=== PATIENT | male | born 1950 ===

== ENCOUNTER 2025-04-18 08:58 | Outpatient (AMB) | payer MEDICARE, OTHER, SELFPAY ==
--- NOTE | 2025-04-18 09:14 | MHC.OFFVIS ---
Vital Signs 04/18/25 09:23 Height 5 ft 6 in Weight 161 lb BMI 26.0 BP 128/67 Blood Pressure Location Rt brachial Position Sitting Pulse 81 Intake Visit Reasons: inguinal hernia Intake Note: Patient referred by Luis Rivera DO for inguinal hernia. Present since November. Patient c/o: lower abdominal bulging. Operations Administrator Required: No Accompanied by: Self / Same As Patient Allergies No Known Allergies Allergy (Verified 04/18/25 09:19) Medication List - Last Reconciled 04/18/25 by Keith Ch MD No Known Home Meds HPI HPI inguinal hernia: Details: 75-year-old male referred for an inguinal hernia in the right side. The patient says that he has been noticing this mass on the right side with a past 5 months now. He states that this gets uncomfortable. There were times that this becomes bigger in size He denies any GI complaints. He says that he sees the [facility] but is in the process of switching primary care physicians. He says that he does not take any medications. He says he lives mostly in [place] and the [facility], but he is here with his brother on some months as well. He admits to drinking alcohol(beer) every day. [facility] Medical History (Updated 04/18/25 @ 09:41 by Keith Ch MD) Reducible right inguinal hernia Surgical History Hx of left inguinal hernia repair Social History Patient Tobacco Use Status: Former Tobacco user Review of Systems Const Denies chills and Denies fever(s) Card Denies chest pain, Denies dyspnea and Denies dyspnea on exertion Resp Denies cough, Denies dyspnea and Denies dyspnea on exertion GI Denies hematochezia and Denies change in bowel habits Denies hematuria and Denies difficulty urinating Musc Denies back pain and Denies limited range of motion Neuro Denies focal weakness and Denies convulsions Psych Denies depression and Denies mood swings Physical Exam Vital Signs: Last Vital Signs Pulse 81 04/18/25 09:23 BP 128/67 04/18/25 09:23 BMI result Body Mass Index 26.0 Const General: comfortable and no acute distress Orientation/consciousness: patient oriented x3 Neck Neck: Yes no lymphadenopathy Resp Auscultation: clear to auscultation bilaterally Cardio Rhythm: regular rhythm GI Other: Large right inguinal hernia reducible Palpation (GI): Soft to palpation, nontender and no guarding Neuro Other: Seems to have trouble with memory General: patient oriented x3 Assessment & Plan Assessment & Plan (1) Reducible right inguinal hernia: Code(s): K40.90 - Unilateral inguinal hernia, without obstruction or gangrene, not specified as recurrent Category: Medical Plan He has a large right reducible inguinal hernia. He wants this repaired. He admits to symptoms with the hernia. I explained to him the technique of repair of the inguinal hernia with mesh placement. I reviewed the risks including but not limited to bleeding, infections, injury to vas deferens, recurrence, postop pain, as well as the benefits and alternatives. I also described to him what to expect postoperatively. He is waiting to be seen by a primary care physician here in [facility]. Coding Level of Care Code New Pt Level 3 (25904) Diagnoses Reducible right inguinal hernia K40.90
[2025-04-18 09:23] VITALS: BP 128/67; PULSE 81; BMI 26.0
--- OUTSIDE RECORDS SUMMARY | 2025-04-18 09:35 | XMS_ITS | Data Portability ---
Author Organization [place] - [facility], , [facility] Address [address] [place] [address] Care Team Providers Care Document Preparer Microfilming Name Role Phone ADONAY CALDERON Primary Care Provider [phone] Assessment Encounter Date Assessment Date Assessment LastModified by Organization Details LastModified Time 07/11/2020 07/11/2020 Report of virtual visit by phone during the COVID19 pandemic. Patient was scheduled for a routine physical. 12 point review of systems is notable for: 1) adenomatous colon polyp-reviewed report from colonoscopy recently showing an adenomatous polyp. We discussed that in 2008 he also had an adenomatous polyp. Patient will call to see if there was an interim colonoscopy that not aware of. Advised appropriate follow-up in 5 years. 2) mixed hyperlipidemia-r eviewed lipid panel. Favorable ratio. No strong indication for statin therapy. Repeat yearly. 3) chronic constipation-pat elliott notes chronic problems with constipation. He had good results with MiraLAX but did not want to use it indefinitely. Assessment-chron ic constipation. Plan-patient advised that he should use MiraLAX as needed to make his bowel movements less traumatic and hard. Follow-up as needed. 4) health maintenance-revi ewed all quality measures. Patient is a low risk for falling and exercises regularly. We discussed needing immunizations for shingles and tetanus but he is going to postpone this until the pandemic has calmed down. Yearly physical encouraged. He is comfortable with this plan. 25 minutes spent in direct patient care. [email or web address] Not available 07/11/2020 14:50:11 07/20/2021 07/20/2021 Patient is here for a routine physical and ongoing review of systems. 12 point review of systems is notable for: 1) health maintenance-revi ewed all quality measures. Immunizations are up to date. Patient gets regular exercise. Lipid panel shows a favorable ratio. Normal glucose. Patient states colonoscopy is up to date. Yearly physical advised. Reviewed his normal PHQ 9. Reviewed his alcohol screening questionnaire. Patient denies any worry about his regular moderate use of alcohol. Tetanus shot updated. 2) hemorrhoids-he denies any significant bleeding. He is typically able to push the hemorrhoids back inside. He denies any significant complications. He declines referral to colorectal surgeon. Follow up with any worsening. 3) history of adenomatous polyps-we will make sure that we have records from his most recent colonoscopy of 06/30/20- bx showed polyp [email or web address] Not available 07/22/2021 05:36:57 08/02/2022 08/02/2022 Patient is here for his yearly physical. He lives majority of the year in the [facility]. He returns to visit family and friends once a year. 12 point review of systems is notable for: 1) mixed hyperlipidemia-w ith no smoking history and an excellent blood pressure. We have discussed the role of statins for primary prevention. He has been having more milkshakes, and his total cholesterol did increase this year. Assessment-mixed hyperlipidemia. He strongly prefers to avoid medication. He will lay off the milkshakes. Follow-up in one year. 2) history of adenomatous polyp and hemorrhoids. His colonoscopy is up to date from 2020. He has episodic bleeding, but denies any shortness of breath or lightheadedness. Assessment-histo ry of adenomatous polyp. Colonoscopy is up to date until 2024. 3) BPH-mild BPH symptoms with nocturia 2 or 3 and mild urgency during the day. He prefers to avoid medication. Okay to follow-up with worsening symptoms. 4) advance care planning-see template above. Reviewed the MOLST form in detail. Encouraged him to review this with his healthcare proxy. Patient is clear that he does not want to be a burden to his family. He would agree to heroic measures temporarily, but then would want to be allowed to . He will discuss this with his healthcare proxy and consider completing the form. 5) health maintenance I reviewed all quality measures. Yearly physical advised. Discussed the importance of regular exercise. Reviewed his normal PHQ9. 6) onychomycosis-he is controlling some mild great toenail fungal involvement with dals-aef-hrwqysp solutions. He denies any pain. Okay to follow-up yearly. He is comfortable with these plans. We agreed that he would switch PCPs next year. [email or web address] Not available 08/02/2022 08:39:47 03/10/2024 03/10/2024 We completed your Medicare Wellness exam today. This was an opportunity to assess your overall well being including your ability to care for yourself, your mobility, memory, mental health, as well as your safety. With advancing age, it is important to assign someone in your life as your Health Care Proxy (HCP). This person should know what is important to you and what your wishes are for medical procedures if you cannot communicate your wishes yourself (severe illness, unconsciousness) . We discussed having a completed Health Care Proxy form today. In addition, today we started a conversation about your End of Life wishes. These conversations will continue over the years. Please consider reading the book, Being Mortal by Gagandeep Hauser to help frame future conversations. We discussed the purpose of a MOLST form (Medical Orders for Life Sustaining Treatment) and completed this form if appropriate per your wishes. Vision and Hearing are senses that are critically important as we age. When impaired, they can contribute to memory loss, falls, and make it harder to drive, talk to family and friends, and engage in the world. Please get your vision checked yearly and your hearing checked when you start to notice hearing loss. We discussed approaches to lowering your risk of heart disease and stroke . Your blood pressure is at goal. Your cholesterol is at goal. We discussed cancer screening you may need as well as vaccines to prevent infections. Colon Cancer : Your risk of colon cancer is average. Due for colorectal screenin. If you are not planning to have a colonoscopy please screen with stool cards yearly. Prostate Cancer : PSA testing for ages 55-69 risks and benefits discussed patient declines testing. Influenza Vaccine : Flu shot yearly. Tetanus Vaccine : Every 10 years. Due: 2030. The following vaccines are available from your pharmacy: Pneumonia Vaccine : PCV20: once after age 65. Shingles Vaccine : 2 shots after age 50. Covid Vaccine : Make sure you have received the most up to date covid vaccine. Your personal health goal for the year is: Not available 03/10/2024 09:57:38 03/14/2025 03/14/2025 We completed your Medicare Wellness exam today. This was an opportunity to assess your overall well being including your ability to care for yourself, your mobility, memory, mental health, as well as your safety. With advancing age, it is important to assign someone in your life as your Health Care Proxy (HCP). This person should know what is important to you and what your wishes are for medical procedures if you cannot communicate your wishes yourself (severe illness, unconsciousness) . We discussed having a completed Health Care Proxy form today. If appropriate, today we started a conversation about your End of Life wishes. These conversations will continue over the years. We discussed the purpose of a MOLST form (Medical Orders for Life Sustaining Treatment) and completed this form if appropriate per your wishes. Vision and Hearing are senses that are critically important as we age. When impaired, they can contribute to memory loss, falls, and make it harder to drive, talk to family and friends, and engage in the world. Please get your vision checked yearly and your hearing checked when you start to notice hearing loss. We discussed approaches to lowering your risk of heart disease and stroke . Your blood pressure is at goal. Your cholesterol is at goal. We discussed cancer screening you may need as well as vaccines to prevent infections. Colon Cancer : Your risk of colon cancer is average. Due for colorectal screenin. If you are not planning to have a colonoscopy please screen with stool cards yearly. june Prostate Cancer : PSA testing for ages 55-69 risks and benefits discussed test ordered. Influenza Vaccine : Flu shot yearly. Tetanus Vaccine : Every 10 years. Due: 2030. The following vaccines are available from your pharmacy: Pneumonia Vaccine : PCV20: once after age 65. Shingles Vaccine : 2 shots after age 50. Covid Vaccine : Make sure you have received the most up to date covid vaccine. Your personal health goal for the year is: We reviewed your chronic medical conditions and updated your plan for management. Please review instructions below. We have discussed your personal goals and discussed how to reach your goals. Please reach out to us via the Portal or phone if you have questions about your chronic conditions or if you or your caregivers require assistance in meeting your goals. Please visit our website [email or web address] for more patient resources. As part of your care plan, we will help coordinate your ongoing medical needs, arrange for durable medical equipment, renew prescriptions and necessary prior authorizations, facilitate getting referrals and collaborating with specialist, referrals for VNA services. Not available 03/14/2025 10:12:32 Plan of Treatment Reminders Order Date Submit Date Provider Last Modified By Organization Details Last Modified Time Details Appointments None recorded. Lab PSA, serum or plasma 2024 025 [facility], [address] [place] [address], [id number], 12:20:17 CBC 2024 025 [facility], [address] [place] [address], [id number], 10:58:30 Referral None recorded. Procedures None recorded. Surgeries None recorded. Imaging US, lower extremity, nonvascular - right inguinal pain, r/o hernia 2024 025 [facility] (Im[facility]), [address], [place], [address], 09:18:46 Medication Orders None recorded. Patient TargetsNo targets recorded. Patient Instructions Encounter Date Encounter Id Patient Instructions Last Modified By Organization Details Last Modified Time 07/11/2020 [id number] preventing falls : care instructions [email or web address] Not available 07/11/2020 14:51:07 hearing loss information [email or web address] Not available 07/11/2020 14:51:06 advance directives: care instructions hsimkin Not available 07/11/2020 14:51:07 well visit, over 65: care instructions [email or web address] Not available 07/11/2020 14:51:06 Prostate Cancer Screening using PSA was discussed. The U.S. Preventive Services Task Force advises not to make a PSA test a part of the standard exam for men ages 55-69. Instead they recommend the uncertainties about the test be discussed and ordered only if a patient still wants it. Over their lifetimes as many as 50% or more of men will develop prostate cancer but only 2% of men will of prostate cancer. For men who chose to be screened for prostate cancer if 1000 men are screened with a psa test over a 15 year period there might be 1-2 deaths prevented however 235 men will have a biopsy with risk of infection, bleeding and Pain, 100 men will have their prostate removed by surgery or radiation treatments and 60-70 of those will suffer incontinence or impotence. There is also the risk of anesthesia or radiation complications. For men over 70 prostate cancer screening offered no benefit and risked pain, worry, expense and possibly shorter life expectancy. [email or web address] Not available 07/11/2020 14:03:11 07/20/2021 [id number] preventing falls : care instructions hsimkin Not available 07/22/2021 05:31:10 hearing loss information hsimkin Not available 07/22/2021 05:31:10 advance directives: care instructions hsimkin Not available 07/22/2021 05:31:10 well visit, over 65: care instructions hsimkin Not available 07/22/2021 05:31:10 Prostate Cancer Screening using PSA was discussed. The U.S. Preventive Services Task Force advises not to make a PSA test a part of the standard exam for men ages 55-69. Instead they recommend the uncertainties about the test be discussed and ordered only if a patient still wants it. Over their lifetimes as many as 50% or more of men will develop prostate cancer but only 2% of men will of prostate cancer. For men who chose to be screened for prostate cancer if 1000 men are screened with a psa test over a 15 year period there might be 1-2 deaths prevented however 235 men will have a biopsy with risk of infection, bleeding and Pain, 100 men will have their prostate removed by surgery or radiation treatments and 60-70 of those will suffer incontinence or impotence. There is also the risk of anesthesia or radiation complications. For men over 70 prostate cancer screening offered no benefit and risked pain, worry, expense and possibly shorter life expectancy. CCM: The provider and patient discussed the Chronic Care Management program, including the services provided, and any fees associated with them. [email or web address] Not available 07/20/2021 14:10:59 08/02/2022 [id number] high cholesterol lifestyle changes hsimkin Not available 08/02/2022 08:33:43 preventing falls : care instructions hsimkin Not available 08/02/2022 08:33:44 hearing loss information hsimkin Not available 08/02/2022 08:33:43 advance directives: care instructions hsimkin Not available 08/02/2022 08:33:43 well visit, over 65: care instructions hsimkin Not available 08/02/2022 08:33:44 Prostate Cancer Screening using PSA was discussed. The U.S. Preventive Services Task Force advises not to make a PSA test a part of the standard exam for men ages 55-69. Instead they recommend the uncertainties about the test be discussed and ordered only if a patient still wants it. Over their lifetimes as many as 50% or more of men will develop prostate cancer but only 2% of men will of prostate cancer. For men who chose to be screened for prostate cancer if 1000 men are screened with a psa test over a 15 year period there might be 1-2 deaths prevented however 235 men will have a biopsy with risk of infection, bleeding and Pain, 100 men will have their prostate removed by surgery or radiation treatments and 60-70 of those will suffer incontinence or impotence. There is also the risk of anesthesia or radiation complications. For men over 70 prostate cancer screening offered no benefit and risked pain, worry, expense and possibly shorter life expectancy. tania Not available 08/02/2022 07:46:35 Reason for Referral None Reported. Results Created Date Observation Date Name Description Value Unit Range Abnormal Flag Note LastModifiedBy Organization Detail LastModifiedTime 06/27/2006/27/2020 SARS CoV 2 RNA (COVI D-19) , QL, ore tester-P CR, respi rator y speci men covid-19 source MARTIN GUZMAN SWAB (COTTRELL BLOWER) Not Available [facility] [address] [place], [address], 06/27/2020 10:40:02 06/27/20 20 06/27/2020 SARS CoV 2 RNA (COVI D-19) , QL, ore tester-P CR, respi rator y speci men covid-19 comment Not Available [facility] [address] [place], [address], 06/27/2020 10:40:02 06/27/20 20 06/27/2020 SARS CoV 2 RNA (COVI D-19) , QL, ore tester-P CR, respi rator y speci men covid testing status Sent to [facility] Not Available [facility] [address] [place], [address], 06/27/2020 10:40:02 06/27/20 20 06/28/2020 SARS CoV 2 RNA (COVI D-19) , QL, ore tester-P CR, respi rator y speci men specimen source/descr iption MARTIN DAUGHERTY AL SWAB Not Available [facility] [address] [place], [address], 06/28/2020 07:18:39 06/27/20 20 06/28/2020 SARS CoV 2 RNA (COVI D-19) , QL, ore tester-P CR, respi rator y speci men sars-cov 2 (covid-19) PCR Not Detect ed not detect ed Negat alba resul ts do not precl ude SARS- CoV-2 infec tion and shoul d not be used as the sole basis for patie nt manag ement decis ions. Negat alba resul ts must be combi kristen with clini carol obser vatio ns, patie nt histo ry, and epide miolo gical infor matio n. Optim um speci men types and timin g for peak viral level s durin g infec tion by SARS- CoV-2 have not been deter mined . Colle ction of multi ple speci mens from the same patie nt may be neces shabana to detec t the virus . This test has been autho rized by the FDA under an Emerg ency Use Autho rizat ion (EUA) for use by 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 Not Available [facility] [address] [place], [address], 06/28/2020 07:18:39 06/30/20 20 07/04/2020 patho logy study path report [facility] [address] [place] [address] Lab Direc tor: Karie hicks MD Surgi carol Patho logy Repor t Acces ever #: [id number] FINAL PATHO LOGIC DIAGN OSIS: DESCE NDING COLON , BIOPS Y: Adeno matou s polyp . B. RECTU M, BIOPS Y: Infla med hyper plast ic polyp Shira ctron icall y Hermelinda d Out By Lumin stefanie lange MD By his/h er signcyndi poole above , the patho logis t liste d as chad kennedy the Final Diagn osis certi fies that he/sh e has perso gian revie wed this case and confi rmed or corre cted the diagn osis. CL[facility] HISTO RY High risk colon cance r surve illan ce: Perso nal histo ry of colon ic polyp s. SPECI MENS SUBMI TTED: A: DESCE NDING COLON BIOPS Y B: RECTU M, BIOPS Y GROSS DESCR IPTIO N A. DESCE NDING COLON BIOPS Y: Forma torrie, 1 fragm ent 0.4 cm. Entir farrah casse tte A1. B. RECTU M, BIOPS Y: Forma torrie, 2 fragm ents each measu ring 0.1 cm. Entir farrah casse tte B1. AN 020 Gross ing Staff : SANDOVAL valero Name: GEMINI SETH : 950 (Age: 70) Sex: M 3 Insti tutio n: [facility] Locat ion: [facility] Date of Opera tion: Date of Acces ever: 020 Repor cathy: 020 14:55 Resul ts To: Phil hernández MD, BS Tacho almanza MD, BA Not Available [facility] [address] [place], [address], 07/04/2020 16:16:16 07/06/20 20 07/06/2020 lipid panel , serum cholesterol 205 mg/dL <200 mg/dl Deepti able 200-2 39 mg/dl Borde rline High >240 mg/dl High Not Available [address], [address], 07/06/2020 15:57:32 07/06/2007/06/2020 lipid panel , serum triglyceride s 72 mg/dL <150 mg/dL Winter l 150-1 99 mg/dL Borde rline High 200-4 99 mg/dL High >500 mg/dL Very High Not Available [address], [address], 07/06/2020 15:57:32 07/06/2007/06/2020 lipid panel , serum direct HDL 61 mg/dL <40 mg/dl - Major Risk for CHD >60 mg/dl - Negat alba Risk for CHD Not Available [address], [address], 07/06/2020 15:57:32 07/06/2007/06/2020 gluco se, QN [mass /volu me], serum or plasm a glucose 92 mg/dL 70-100 Not Available [address], [address], 07/06/2020 15:57:33 07/06/2007/06/2020 LDL, calcu lated , serum (OBS) LDL - calculated 129.6 RISK CATEG ORY LDL GOAL _ CHD or CHD Risk Equiv alent s <100 mg/dl (10-y ear risk >20%) 2+ Risk Facto rs <130 mg/dl (10-y ear risk <= 20%) 0-1 Risk Facto r <160 mg/[facility] e with 0-1 risk facto r have a 10 year risk <10%, thus 10 year risk asses ment in peopl e with 0-1 risk facto r is not preston shabana. Not Available [address], [address], 07/06/2020 15:57:33 07/16/20 21 07/16/2021 LIPID PANEL cholesterol 206 mg/dL <200 mg/dl Deepti able 200-2 39 mg/dl Borde rline High >240 mg/dl High Not Available [address], [address], 07/16/2021 15:01:56 07/16/20 21 07/16/2021 LIPID PANEL triglyceride s 74 mg/dL <150 mg/dL Winter l 150-1 99 mg/dL Borde rline High 200-4 99 mg/dL High >500 mg/dL Very High Not Available [address], [address], 07/16/2021 15:01:56 07/16/20 21 07/16/2021 LIPID PANEL direct HDL 63 mg/dL <40 mg/dl - Major Risk for CHD >60 mg/dl - Negat alba Risk for CHD Not Available [address], [address], 07/16/2021 15:01:56 07/16/20 21 07/16/2021 GLUCO SE glucose 98 mg/dL 70-100 Not Available [address], [address], 07/16/2021 15:01:56 07/16/20 21 07/16/2021 LDL - CALCU LATED LDL - calculated 128.2 RISK CATEG ORY LDL GOAL _ CHD or CHD Risk Equiv alent s <100 mg/dl (10-y ear risk >20%) 2+ Risk Facto rs <130 mg/dl (10-y ear risk <= 20%) 0-1 Risk Facto r <160 mg/dl [facility] all peopl e with 0-1 risk facto r have a 10 year risk <10%, thus 10 year risk asses ment in peopl e with 0-1 risk facto r is not preston waltony. Not Available [address], [address], 07/16/2021 15:01:57 07/25/20 22 07/25/2022 LIPID PANEL cholesterol 248 mg/dL <200 mg/dl Deepti able 200-2 39 mg/dl Borde rline High >240 mg/dl High Not Available [address], [address], 07/25/2022 12:10:30 07/25/20 22 07/25/2022 LIPID PANEL triglyceride s 126 mg/dL <150 mg/dL Winter l 150-1 99 mg/dL Borde rline High 200-4 99 mg/dL High >500 mg/dL Very High Not Available [address], [address], 07/25/2022 12:10:30 07/25/20 22 07/25/2022 LIPID PANEL direct HDL 66 mg/dL <40 mg/dl - Major Risk for CHD >60 mg/dl - Negat alba Risk for CHD Not Available [address], [address], 07/25/2022 12:10:30 07/25/20 22 07/25/2022 GLUCO SE glucose 94 mg/dL 70-100 Not Available [address], [address], 07/25/2022 12:10:31 07/25/20 22 07/25/2022 LDL - CALCU LATED LDL - calculated 156.8 RISK CATEG ORY LDL GOAL _ CHD or CHD Risk Equiv alent s <100 mg/dl (10-y ear risk >20%) 2+ Risk Facto rs <130 mg/dl (10-y ear risk <= 20%) 0-1 Risk Facto r <160 mg/dl [facility] all peopl e with 0-1 risk facto r have a 10 year risk <10%, thus 10 year risk asses ment in peopl e with 0-1 risk facto r is not preston shabana. Not Available [address], [address], 07/25/2022 12:10:33 03/02/20 24 03/02/2024 LIPID PANEL cholesterol 208 mg/dL <200 mg/dl Deepti able 200-2 39 mg/dl Borde rline High >240 mg/dl High Not Available [address], [address], 03/02/2024 12:32:31 03/02/20 24 03/02/2024 LIPID PANEL triglyceride s 89 mg/dL <150 mg/dL Winter l 150-1 99 mg/dL Borde rline High 200-4 99 mg/dL High >500 mg/dL Very High Not Available [address], [address], 03/02/2024 12:32:31 03/02/20 24 03/02/2024 LIPID PANEL direct HDL 65 mg/dL <40 mg/dl - Major Risk for CHD >60 mg/dl - Negat alba Risk for CHD Not Available [address], [address], 03/02/2024 12:32:31 03/02/20 24 03/02/2024 GLUCO SE glucose 91 mg/dL 70-100 Not Available [address], [address], 03/02/2024 12:32:32 03/02/20 24 03/02/2024 LDL - CALCU LATED LDL - calculated 125.2 RISK CATEG ORY LDL GOAL _ CHD or CHD Risk Equiv alent s <100 mg/dl (10-y ear risk >20%) 2+ Risk Facto rs <130 mg/dl (10-y ear risk <= 20%) 0-1 Risk Facto r <160 mg/[facility] with 0-1 risk facto r have a 10 year risk <10%, thus 10 year risk asses ment in peopl e with 0-1 risk facto r is not preston donald. Not Available [address], [address], 03/02/2024 12:32:33 03/07/20 25 03/08/2025 LIPID PANEL cholesterol 191 mg/dL <200 mg/dl Deepti able 200-2 39 mg/dl Borde rline High >240 mg/dl High Not Available [address], [address], 03/08/2025 16:26:13 03/07/20 25 03/08/2025 LIPID PANEL triglyceride s 57 mg/dL <150 mg/dL Winter l 150-1 99 mg/dL Borde rline High 200-4 99 mg/dL High >500 mg/dL Very High Not Available [address], [address], 03/08/2025 16:26:13 03/07/20 25 03/08/2025 LIPID PANEL direct HDL 65 mg/dL <40 mg/dl - Major Risk for CHD >60 mg/dl - Negat alba Risk for CHD Not Available [address], [address], 03/08/2025 16:26:13 03/07/20 25 03/08/2025 GLUCO SE glucose 103 mg/dL 70-100 high Not Available [address], [address], 03/08/2025 16:26:14 03/07/20 25 03/08/2025 LDL - CALCU LATED LDL - calculated 115 RISK CATEG ORY LDL GOAL _ CHD or CHD Risk Equiv alent s <100 mg/dl (10-y ear risk >20%) 2+ Risk Facto rs <130 mg/dl (10-y ear risk <= 20%) 0-1 Risk Facto r <160 mg/dl [facility] all peopl e with 0-1 risk facto r have a 10 year risk <10%, thus 10 year risk asses ment in peopl e with 0-1 risk facto r is not preston donald. Not Available [address], [address], 03/08/2025 16:26:15 03/15/20 25 03/15/2025 CBC WBC 11.33 K/ L 4.23-9 .07 high Not Available [address], [address], 03/15/2025 10:58:30 03/15/20 25 03/15/2025 CBC RBC 5.23 M/ L 4.63-6 .08 Not Available [address], [address], 03/15/2025 10:58:30 03/15/20 25 03/15/2025 CBC HGB 15.9 g/dL 13.7-1 7.5 Not Available [address], [address], 03/15/2025 10:58:30 03/15/20 25 03/15/2025 CBC HCT 47.5 % 40.1-5 1.0 Not Available [address] [address], [address], 03/15/2025 10:58:30 03/15/20 25 03/15/2025 CBC MCV 90.8 fL 79.0-9 2.2 Not Available [address], [address], 03/15/2025 10:58:30 03/15/20 25 03/15/2025 CBC MCH 30.4 pg 25.7-3 2.2 Not Available [address], [address], 03/15/2025 10:58:30 03/15/20 25 03/15/2025 CBC MCHC 33.5 g/dL 32.3-3 6.5 Not Available [address], [address], 03/15/2025 10:58:30 03/15/20 25 03/15/2025 CBC plt 231 K/ L 163-33 7 Not Available [address], [address], 03/15/2025 10:58:30 03/15/20 25 03/15/2025 CBC MPV 10.4 fL 9.4-12 .4 Not Available [address], [address], 03/15/2025 10:58:30 03/15/20 25 03/15/2025 CBC neut% 38.2 % 34.0-6 7.9 Not Available [address], [address], 03/15/2025 10:58:30 03/15/20 25 03/15/2025 CBC neut# 4.33 1.78-5 .38 Not Available [address], [address], 03/15/2025 10:58:30 03/15/20 25 03/15/2025 CBC lymph % 53.0 % 21.8-5 3.1 Not Available [address], [address], 03/15/2025 10:58:30 03/15/20 25 03/15/2025 CBC lymph # 6.01 K/ L 1.32-3 .57 high SREV= [facility]. Not Available [address], [address], 03/15/2025 10:58:30 03/15/20 25 03/15/2025 CBC mono% 6.4 % 5.3-12 .2 Not Available [address], [address], 03/15/2025 10:58:30 03/15/20 25 03/15/2025 CBC mono# 0.72 0.30-0 .82 Not Available [address], [address], 03/15/2025 10:58:30 03/15/20 25 03/15/2025 CBC eo% 1.3 % 0.8-7. 0 Not Available [address], [address], 03/15/2025 10:58:30 03/15/20 25 03/15/2025 CBC eo# 0.15 0.04-0 .54 Not Available [address], [address], 03/15/2025 10:58:30 03/15/20 25 03/15/2025 CBC baso% 0.8 % 0.2-1. 2 Not Available [address], [address], 03/15/2025 10:58:30 03/15/20 25 03/15/2025 CBC baso# 0.09 0.00-0 .08 high Not Available [address], [address], 03/15/2025 10:58:30 03/15/20 25 03/15/2025 CBC RDW-CV 12.3 % 11.6-1 4.4 Not Available [address], [address], 03/15/2025 10:58:30 03/15/20 25 03/15/2025 CBC Ig% 0.300 % 0.000- 1.500 Ig % >0.5 Indic ates possi ble Left Shift Not Available [address], [address], 03/15/2025 10:58:30 03/15/20 25 03/15/2025 CBC Ig# 0.030 0.000- 0.093 Not Available [address], [address], 03/15/2025 10:58:30 03/15/20 25 03/15/2025 CBC NRBC% 0.0 % 0.0-0. 2 Not Available [address], [address], 03/15/2025 10:58:30 03/15/20 25 03/15/2025 CBC NRBC# 0.000 0.000- 0.012 Not Available [address], [address], 03/15/2025 10:58:30 03/15/20 25 03/15/2025 PSA PSA 0.87 NG/mL 0.00-4 .00 Not Available [address], [address], 03/15/2025 12:20:17 03/16/20 25 03/15/2025 US, lower extre mity, nonva scula r CLINIC AL HISTOR Y: Right inguin al bulge and pain. Possib le hernia . TECHNI QUE: 2D sonogr aphy of the area of the patien t's lump perfor med. COMPAR FERNANDO: None. FINDIN GS: At the site of the palpab le abnorm ality, there is a defect in the abdomi nal wall with Valsal va maneuv er measur ing 5 mm. With Valsal va there is a hernia contai oj viscer al fat. IMPRES EVER: Fat-co ntaini ng right inguin al hernia with a neck measur ing 5 mm. Readeusebio kennedy Physic monie: Marcell Soto [facility] (Imaging) [address], [place], [address], 03/16/2025 14:22:01 Result Notes None recorded. Problems Name Problem SNOMED Code Status Onset Date Resolution Date Notes Provider Name and Address Organization Details Recorded Time Active 2019 son 2018 from overdose Tacho Knox MD [address] [place] [address], [phone] , [facility] 0 14:51:01 Adenomat ous polyp of colon 164393992 Active 2021 Tacho Knox MD [address] [place] [address], [phone] , [facility] 2 08:38:16 Onychomy cosis of toenails 615824832 Active 2021 Tacho Knox MD [address] [place] [address], [phone] , [facility] 2 08:38:19 Advance care planning Active 2021 see note today Tacho Knox MD [address] [place] [address], [address] , [facility] 2 08:42:22 Mixed hyperlip idemia 153956073 Active 2004 Not Available [facility] 0 02:38:22 Internal hemorrho ids 33325721 Completed 200409/15/2013 Not Available [facility] 3 02:03:13 Dyspnea 134758582 Completed 200709/15/2013 Not Available [facility] 3 02:02:46 Finding by method 207734908 Completed 200409/15/2013 Not Available [facility] 3 02:01:56 Breathin g painful 98096575 Completed 200409/15/2013 Not Available [facility] 3 02:02:56 Neoplasm of uncertai n behavior of skin 21212820 Completed 200409/15/2013 Not Available [facility] 3 02:01:52 Hemorrha ge of rectum and anus 373686018 Completed 200309/15/2013 Not Available [facility] 3 02:03:17 Hemangio ma of skin and subcutan eous tissue 283614595 Completed 10/11/2013 Tacho Knox MD [address] [place] [address], [phone] , [facility] 3 11:53:35 Hyperlip idemia 56258300 Completed 200710/11/2013 aTcho Knox MD [address] [place] [address], [address] , [facility] 3 11:53:35 Nonvenom ous insect bite of multiple sites with infectio n 096272766 Completed 200309/15/2013 Not Available [facility] 3 02:04:12 Pure hypercho lesterol emia 183128961 Completed 200610/11/2013 Tacho Knox MD [address] [place] [address], [address] , [facility] 3 11:53:35 Problem Notes None recorded. Procedures Surgical History Date Name Laterality Status Provider Name and Address Organization Details Recorded Time 03/14/20 25 Medicare Wellness Visit completed Augeda King MA [facility] [place] 03/11/2025 14:44:56 03/10/20 24 Medicare Wellness Visit completed Lalita Moore MA [facility] [place] 03/10/2024 09:10:51 08/02/20 22 Medicare Wellness Visit completed Jennifer Lorenz MA [facility] [place] 08/02/2022 07:46:35 08/02/20 22 Alcohol use screening completed Jennifer Lorenz MA [facility] [place] 08/02/2022 07:46:35 08/02/20 22 Cardiovascular disease risk reduction counseling completed Jennifer Lorenz MA [facility] [place] 08/02/2022 07:46:35 08/02/20 22 Advanced Care Planning completed Tacho Knox MD [address] [place] [address], [phone], [facility] 08/02/2022 08:40:37 07/20/20 21 Medicare Wellness Visit completed Geovanna Alexander MA [facility] [place] 07/20/2021 13:34:32 07/20/20 21 Alcohol use screening completed Geovanna Alexander MA [facility] [place] 07/20/2021 13:34:32 07/11/20 20 Medicare Wellness Visit completed Geovanna Alexander MA [facility] [place] 07/11/2020 14:03:12 07/11/20 20 prevention-cardiov ascular risk reduction counseling completed Geovanna Alexander MA [facility] [place] 07/11/2020 14:03:12 07/11/20 20 prevention-annual alcohol misuse screening completed Geovanna Alexander MA [facility] [place] 07/11/2020 14:03:12 03/11/20 19 Medicare Wellness Visit completed Geovanna Alexander MA [facility] [place] 03/11/2019 07:47:21 08/14/20 17 Medicare Wellness Visit completed Geovanna Alexander MA [facility] [place] 08/14/2017 13:55:03 08/05/20 16 Medicare Wellness Visit completed Elle Garcia LPN [facility] [place] 08/05/2016 09:29:12 05/05/20 15 Medicare Wellness Visit completed Geovanna Alexander MA [facility] [place] 05/05/2015 09:14:58 08/03/20 10 Excision completed Tacho Knox MD [address] [place] [address], [phone] 08/03/2010 14:52:04 Imaging Results None recorded. Procedure Notes None recorded. Medical Equipment None Reported. Allergies No known drug allergies Medications Name Sig Start Date Stop Date Status Note LastModified by Organization Details LastModified Time amoxicillin 875 mg tablet TAKE 1 TABLET BY MOUTH TWICE DAILY UNTIL ALL TAKEN 03/11 completed Not Available Not Available Not Available cephalexin 500 mg capsule active Not Available Not Available Not Available Bisa-Lax (bisacodyl) 5 mg tablet,carmelo yed release TK 4 TS PO ONCE A DAY 07/11 completed Not Available Not Available Not Available Zostavax (PF) 19,400 unit/0.65 mL subcutaneou s suspension ADM 0.65ML SC UTD 08/02 completed Not Available Not Available Not Available GaviLyte-G 236 gram-22.74 gram-6.74 gram-5.86 gram oral solution MIX AND DRINK UTD 07/11 completed Not Available Not Available Not Available BinaxNOW COVID-19 Ag Self Test kit TEST DIRECTED TODAY 08/02 completed Not Available Not Available Not Available Vitals Date Recorded Body weight Body mass index (BMI) Body height Heart rate Respiratory rate Oxygen saturation Oxygen saturation in Arterial blood by Pulse oximetry Systolic blood pressure Diastolic blood pressure Provider Name and Address Organization Details Last Updated DateTime 4 14572.5 3 g 25.5 kg/m2 168.91 cm 52 /min 12 /min 99 % 99 % 110 mm[Hg] 70 mm[Hg] Lalita Moore [facility] 4 09:17:27 Date Recorded Oxygen saturation Oxygen saturation in Arterial blood by Pulse oximetry Heart rate Body weight Body mass index (BMI) Body height Systolic blood pressure Diastolic blood pressure Provider Name and Address Organization Details Last Updated DateTime 5 98 % 98 % 54 /min 49519.7 g 25 kg/m2 168.91 cm 116 mm[Hg] 60 mm[Hg] Agueda King [facility] 5 09:52:40 Date Recorded Body weight Provider Name an d Address Organization Details Last Updated DateTime 07/11/2020 93926.63 g Geovanna fuentes [facility] 07/11/2020 14:03:50 Date Recorded Body height Body mass index (BMI) Body weight Systolic blood pressure Diastolic blood pressure Provider Name and Address Organization Details Last Updated DateTime 07/20/2021 168.91 cm 2.5 kg/m2 7076.04 g 110 mm[Hg] 64 mm[Hg] Geovanna Alexander [facility] 1 13:48:53 Date Recorded Body height Body mass index (BMI) Body weight Heart rate Systolic blood pressure Diastolic blood pressure Provider Name and Address Organization Details Last Updated DateTime 2 168.91 cm 25.8 kg/m2 10860.9 6 g 60 /min 118 mm[Hg] 68 mm[Hg] Jennifer Lorenz [facility] 2 07:52:26 Social History Question Answer Notes LastModified by Organizat ion Details LastModified Time Tobacco Smoking Status Former Smoker quit 1972 JUAN CARLOS Sanchez, [facility] [place] 07/16/2011 09:22:23 Do You Wear A Helmet When Biking? Yes Rarely Bikes Information not available 05/05/2015 What Is Your Level Of Caffeine Consumption? Moderate 2 Cups Per Day [email or web address] Information not available 08/05/2016 How Much Tobacco Do You Chew? None Information not available 10/09/2012 What Type Of Diet Are You Following? REGULAR Information not available 05/05/2015 Which Illicit Or Recreational Drugs Have You Used? No Information not available 05/05/2015 Education 2 Year College Information not available 05/05/2015 What Is The Highest Grade Or Level Of School You Have Completed Or The Highest Degree You Have Received? [id number] Information not available 07/20/2021 How Many Days Of Moderate To Strenuous Exercise, Like A Brisk Walk, Did You Do In The Last 7 Days? 7 Information not available 07/20/2021 Have There Been Any Changes To Your Family Or Social Situation? Yes In The Last 3 Years Father & Sister & Son Commited Suicide Information not available 07/20/2021 When Did You Quit Smoking? 16+yearssinc elastcigaret te Smoked 8 Years - 1ppd Information not available 03/11/2019 How Many Days In The Past Year Have You Had A Heavy Drinking Consumption (4+ Female, 5+ Male)? 0 Information not available 08/14/2017 Are There Any Guns Present In Your Home? No Information not available 09/12/2011 Do You Use Insect Repellent Routinely? No Information not available 07/20/2021 Live Alone Or With Others? With Others Information not available 08/14/2017 Patient Has Health Care Proxy Signed And In Chart Yes [email or web address] Information not available 03/11/2019 CCM Consent Discussion 07/20/2021 [email or web address] Information not available 07/23/2021 Marital Status Information not available 09/12/2011 Mosquito Repellent Used Routinely No Information not available 03/11/2019 What Was The Date Of Your Most Recent Tobacco Screening? 03/10/2024 [email or web address] Information not available 03/10/2024 How Many Children Do You Have? 1 Son Committed Suicide -Has Grown Daughter Information not available 07/16/2011 Are There Any Occupational Health Risks Where You Work? None [email or web address] Information not available 08/05/2016 What Is Your Current Pack Years? 10packyears [email or web address] Information not available 03/10/2024 What Is Your Relationship Status? Domestic Partner Information not available 07/20/2021 Do You Use Your Seat Belt Or Car Seat Routinely? Yes Information not available 07/20/2021 Seat Belts Used Routinely Yes [email or web address] Information not available 09/12/2011 Smoke Alarm In Home Yes [email or web address] Information not available 09/12/2011 Do You Have Smoke And Carbon Monoxide Detectors In Your Home? Yes Information not available 07/20/2021 At What Age Did You Start Smoking Tobacco? 16 Information not available 07/20/2021 Are You Passively Exposed To Smoke? No Information not available 07/20/2021 How Much Tobacco Do You Smoke? No [email or web address] Information not available 03/10/2024 What Types Of Sporting Activities Do You Participate In? No Information not available 05/05/2015 General Stress Level Low Information not available 05/05/2015 Do You Use Sunscreen Routinely? No Stays In [employer] [place] [employer] Information not available 08/14/2017 How Many Years Have You Smoked Tobacco? 7 Information not available 07/20/2021 How Many Days In The Past Year Have You Consumed 5 Or More Drinks? 3 Information not available 07/20/2021 Sex: Male Functional Status Question Answer Note LastModified by Organizat ion Details LastModified Time Do you use any illicit or recreational drugs? No Information not available 07/20/2021 Do you or have you ever used any other forms of tobacco or nicotine? No Information not available 07/20/2021 What is your level of alcohol consumption? Moderate 3 beers/day Information not available 08/02/2022 Do you or have you ever used smokeless tobacco? Never used smokeless tobacco Information not available 07/11/2020 Are you currently employed? No Information not available 07/20/2021 What is your occupation? Other [employer] Information not available 04/09/2025 Do you or have you ever used e-cigarettes or vape? Never used electronic cigarettes Information not available 07/11/2020 What is your exercise level? Moderate Daily Information not available 08/02/2022 Mental Status None recorded. Family History Nothing Reported Notes:melanoma Medical History No medical history recorded. Immunizations Vaccine Type Date Status Note Provider Nam e and Address Organization Details Recorded Time Tdap 0 completed Not Available [facility] 11/13/2019 02:34:55 Pneumococcal conjugate PCV 13 6 completed Not Available [facility] 11/13/2019 02:21:06 zoster live 6 completed Not Available [facility] 11/13/2019 02:31:10 pneumococcal polysaccharide PPV23 9 completed Not Available [facility] 11/13/2019 02:24:00 Td (adult), 2 Lf tetanus toxoid, preservative free, adsorbed 1 completed JUAN CARLOS Sanchez [facility] [place] 07/20/2021 14:18:22 COVID-19, mRNA, LNP-S, PF, 100 mcg/0.5mL dose or 50 mcg/0.25mL dose 1 completed JUAN CARLOS Sanchez [facility] [place] 07/20/2021 13:38:41 COVID-19, mRNA, LNP-S, PF, 100 mcg/0.5mL dose or 50 mcg/0.25mL dose 1 completed JUAN CARLOS Sanchez [facility] [place] 07/20/2021 13:38:49 Past Encounters Encounter ID Performer Location Encounter Start Date Encounter Closed Date Diagnosis/Indication Diagnosis SNOMED-CT Code Diagnosis ICD10 Code Diagnosis Note [id number] Tacho Knox MD , [facility], [address] [place] [address] 02/15/2002 10:00:00 11/16/2008 02:02:29 [id number] Steve Bennett MD FP, [facility], [address] [place] [address] 04/20/2004 13:13:38 04/20/2004 17:51:21 [id number] Aiyana Colón NP FP, [facility], [address] [place] [address] 10/25/2004 08:35:09 10/25/2004 17:07:01 [id number] [facility] - [address] [place] [address] 10/30/2004 14:15:56 10/30/2004 14:18:23 [id number] MD AUBRIE Sellers, [facility], [address] [place] [address] 03/20/2005 07:52:06 03/20/2005 12:37:17 [id number] [facility] - [facility] [address] [place] [address] 03/20/2005 08:39:49 03/20/2005 08:40:07 [id number] Tacho Knox MD , [facility], [address] [place] [address] 09/03/2005 16:10:35 11/16/2008 02:02:29 [id number] [facility] [address] [place] [address] 09/03/2005 16:34:22 11/16/2008 02:02:29 [id number] [facility] [address] [place] [address] 09/03/2005 00:00:00 11/16/2008 02:02:29 [id number] MD AUBRIE Sellers, [facility], [address] [place] [address] 11/24/2006 08:58:05 11/24/2006 11:20:56 [id number] [facility] - [address] [address] 11/24/2006 09:28:54 11/24/2006 09:29:01 [id number] [facility] - [address] [address] 01/06/2008 10:16:56 01/06/2008 10:17:03 [id number] MD AUBRIE Sellers, [facility], [address] [place] [address] 01/06/2008 09:09:00 11/16/2008 02:02:29 [id number] Amanda Simpson NP , [facility], [address] [place] [address] 12/13/2008 07:16:33 12/14/2008 12:30:15 [id number] SAMUEL Smyth, [facility], [address] [place] [address] 11/07/2009 08:12:57 11/07/2009 11:21:53 [id number] MD AUBRIE Sellers, [facility], [address] [place] [address] 08/03/2010 13:58:53 08/06/2010 12:50:06 [id number] MD AUBRIE Sellers, [facility], [address] [place] [address] 07/16/2011 08:45:41 07/16/2011 09:51:07 [id number] MD AUBRIE Sellers, [facility], [address] [place] [address] 04/20/2012 15:58:40 04/20/2012 16:22:11 [id number] Tacho Knox MD , [facility], [address] [place] [address] 10/09/2012 07:59:53 10/09/2012 08:48:18 [id number] MD AUBRIE Sellers, [facility], [address] [place] [address] 10/11/2013 08:57:33 10/11/2013 13:19:35 Adult health examination [id number] see Risk Assessment and Lifestyle Change Counseling section above Counseling [id number] Mixed hyperlipidemia 034559280 [id number] MD AUBRIE Sellers, [facility], [address] [place] [address] 05/05/2015 08:46:30 05/05/2015 09:58:15 Adult health examination 168159392 see Risk Assessment and Lifestyle Change Counseling section above Counseling [id number] MD AUBRIE Sellers, [facility], [address] [place] [address] 08/05/2016 09:14:15 08/05/2016 10:07:54 Adult health examination 747455702 Z00.00 see Risk Assessment and Lifestyle Change Counseling section above Counseling 558205841 Z71 .9 Active or passive immunization 642500602 Z23 [id number] Tacho Knox MD , [facility], [address] [place] [address] 02/28/2017 08:25:08 02/28/2017 08:53:48 Mediastinal lymphadenopathy 88017032 R59.0 [id number] Tacho Knox MD , [facility], [address] [place] [address] 08/14/2017 13:23:20 08/14/2017 14:44:35 Adult health examination 631446161 Z00.00 see Risk Assessment and Lifestyle Change Counseling section above Counseling 048047005 Z71 .9 Mediastina l lymphadenopathy 82277080 R59.0 [id number] Tacho Knox MD , [facility], [address] [place] [address] 03/11/2019 07:33:13 03/12/2019 09:35:31 Adult health examination 745092640 Z00.00 see Risk Assessment and Lifestyle Change Counseling section above Counseling 808353198 Z71 .9 Depression screening 171 921364 Z13.89 depression screening tool administer ed, entered into emr, scored and discussed, time greater than 7.5 minutes Atypical chest pain 1025 69100 R07.89 Active or passive immunization 375847406 Z23 [id number] Tacho Knox MD , [facility], [address] [place] [address] 07/11/2020 13:58:45 07/13/2020 09:45:30 Adult health examination 324160449 Z00.00 see Risk Assessment and Lifestyle Change Counseling section above Counseling 825043780 Z71 .9 including cardiovasc ular risk reduction counseling Screening for alcohol abuse 791195547 Z13.39 Mixed hyperlipidemia 267 288198 E78.2 Chronic constipation 236 380233 K59.09 Adenomatou s polyp of colon 891811174 D12.6 [id number] Tacho Knox MD , [facility], [address] [place] [address] 07/20/2021 13:33:24 07/20/2021 14:17:54 Adult health examination 793047440 Z00.00 see Risk Assessment and Lifestyle Change Counseling section above Counseling 001942241 Z71 .9 including cardiovasc ular risk reduction counseling Depression screening 171 Z13.31 depression screening tool administer ed, entered into emr, scored and discussed, time greater than 7.5 minutes Screening for alcohol abuse 863987431 Z13.39 Hemorrhoids 28038480 K64 .9 Active or passive immunization 774571986 Z23 Adenomatou s polyp of colon 708994768 D12.6 [id number] Tacho Knox MD , [facility], [address] [place] [address] 08/02/2022 07:30:13 08/02/2022 08:29:16 Adult health examination 416876826 Z00.00 see Risk Assessment and Lifestyle Change Counseling section above Counseling 501204593 Z71 .9 including cardiovasc ular risk reduction counseling Depression screening 171 Z13.31 depression screening tool administer ed, entered into emr, scored and discussed, time greater than 7.5 minutes Screening for alcohol abuse 552490841 Z13.39 Mixed hyperlipidemia 267 958984 E78.2 Adenomatou s polyp of colon 926795425 D12.6 Onychomyco sis of toenails 715941466 B35.1 Advance care planning 71 2486062 Z71.89 [id number] SANKET GILL DO FP, [facility], [address] [place] [address] 03/10/2024 08:58:22 03/11/2024 10:51:44 Adult health examination 696950206 Z00.00 The importance of a healthy well rounded diet was discussed The importance of regular exercise was discussed. The patient has discussed and made a plan to increase regular exercise The importance of calcium in the diet was discussed. The patient was encouraged to increase weight bearing exercise increase calcium intake to 1200mg daily and 800 units of Vitamin D daily Health Care Proxy discussed and provided to patient Stress management program discussed Patient instructed in protecting skin from the sun Avoidance of hazardous and harmful drinking discussed Safety issues including seat belts, bike helmets, and home safety were discussed Depression screening 171 Z13.31 depression screening tool administer ed Screening for alcohol abuse 751383457 Z13.39 Alcohol use screening tool administer ed Abdominal aortic aneurysm screening 779122438 Z13.6 Declines testing/sc reening. Screening for malignant neoplasm of prostate 357174256 Z12.5 Declines testing for PSA. [id number] DO AUBRIE ROMERO, [facility], [address] [place] [address] 03/14/2025 09:08:38 03/14/2025 10:25:45 Adult health examination 912695539 Z00.00 The importance of a healthy well rounded diet was discussed The importance of regular exercise was discussed. The patient has discussed and made a plan to increase regular exercise The importance of calcium in the diet was discussed. The patient was encouraged to increase weight bearing exercise increase calcium intake to 1200mg daily and 800 units of Vitamin D daily Health Care Proxy discussed and provided to patient Stress management program discussed Patient instructed in protecting skin from the sun Avoidance of hazardous and harmful drinking discussed Safety issues including seat belts, bike helmets, and home safety were discussed Depression screening 171 [id number] Z13.31 depression screening tool administer ed Screening for alcohol abuse [id number] Z13.39 Alcohol use screening tool administer ed Mixed hyperlipidemia [id number] E78.2 Check lipids, advised to follow a heart healthy diet and; increase exercise. Screening for malignant neoplasm of prostate [id number] Z12.5 agreeable to testing for PSA. Groin mass [id number] R19 .09 Concern for R inguinal hernia. Patient agreeable to inguinal US for further evaluation . Health Concerns Section Related Observation LastModified by Organization Detai ls LastModified Time None Recorded Concern Status LastModified by Organization Details LastModified Time None Recorded Advance Directives Directive None Recorded Payers Insurance Date Sequence Insurance Name Policy Number Policy Stewart Covered Member ID Stewart Member ID Guarantor Name 04/13/2025 2 [employer] (MEDICARE SUPPLEMENT) Gemini Jacobson Jr [id number] Gemini Jacobson Jr 04/10/2025 1 [place] [employer] [place] Gemini España Jr [id number] Gemini Jacobson Jr 04/13/2025 2 [employer] - PLAN HF (MEDICARE SUPPLEMENT) Gemini España [id number] Gemini Jacobson Jr 04/10/[address] [facility] (O) [id number] Gemini Jacobson [id number] Gemini Huberluis daniel Ring 04/10/2025 1 [place] [id number] Gemini España [id number] Gemini Huberluis daniel Ring 04/10/2025 1 [facility] (PPO) [id number] Gemini Huberluis daniel Ring [id number] Gemini Grullon EliasAdithyaBurgaw Jr 11/07/2009 1 *SELF PAY* Jose D costa Mitchel MayoJimenez Jr 04/10/2025 1 [place] [employer] Gemini España [id number] Gemini Grullon EliasDevJimenez Ring 04/10/[address] [facility] (PPO) [id number] Gemini Huberell [id number] Gemini Huberluis daniel Ring Notes Date Note Type Note Provider Name and Address Organization Details Recorded Time 0 text/html Risk Assessment and Lifestyle Change Counseling 65+ (Medicare)Reported bypatient.Safety Risk Assessment:Has grab bars in bathroom; Has rails on steps; No falls; No evidence of abuse/neglect; Do you feel safe in your current relationship?YES; Have you ever been a victim of physical/emotional/sexual abuse?NO Functional Status:Patient does not have trouble hearing the television or radio when others do not.; Patient does not have to strain or struggle to hear/understand conversations; Patient does not need help with preparing meals, transportation, shopping, taking medicine, managing finances, or other activities of daily living.; Patient does not have visual loss that interferes with daily activities; Does not live alone; Patient was not unsteady and did not take longer than 30 seconds during the timed get up and go test.; Patient reports no falls in the past 6 months. Tacho Knox MD [address] [place] [address], [phone], [facility] 07/11/2020 14:51:11 1 text/html Physical Exam/MaleReported bypatient.PHAPatient is here for a Wellness Visit. He describes his health status as good. Patient's health is the same as last year.Risk Assessment and Lifestyle Change Counseling 65+ (Medicare)Reported bypatient.Safety Risk Assessment:Has grab bars in bathroom; Has rails on steps; No falls; No evidence of abuse/neglect; Do you feel safe in your current relationship?YES; Have you ever been a victim of physical/emotional/sexual abuse?NO Functional Status:Patient does not have trouble hearing the television or radio when others do not.; Patient does not have to strain or struggle to hear/understand conversations; Patient does not need help with preparing meals, transportation, shopping, taking medicine, managing finances, or other activities of daily living.; Patient does not have visual loss that interferes with daily activities; Does not live alone; Patient was not unsteady and did not take longer than 30 seconds during the timed get up and go test.; Patient reports no falls in the past 6 months. Tacho Knox MD [address] [place] [address], [phone], [facility] 07/22/2021 05:37:08 2 text/html Physical Exam/MaleReported bypatient.PHAPatient is here for a Wellness Visit. He describes his health status as good. Patient's health is the same as last year.Risk Assessment and Lifestyle Change Counseling 65+ (Medicare)Reported bypatient.Coronary Artery Disease Risk Assessment:No Family history of coronary artery disease; No personal history of diabetes; No history of peripheral vascular disease, AAA, or carotid disease; No personal history of coronary artery disease Breast Cancer Risk Assessment:No family history of breast cancer; No history of breast cancer or dcis Colon Cancer Risk Assessment:No family history of pre cancerous colon polyps or cancer Lung Cancer Risk Assessment:Has used cigarettes Cognitive/Behavioral Risk Assessment:No personal history of mental illness; No family history of mental illness Safety Risk Assessment:Has grab bars in bathroom; Has rails on steps; No falls; No evidence of abuse/neglect Functional Status:Patient does not have trouble hearing the television or radio when others do not.; Patient does not have to strain or struggle to hear/understand conversations; Patient does not need help with preparing meals, transportation, shopping, taking medicine, managing finances, or other activities of daily living.; Patient does not have visual loss that interferes with daily activities; Does not live alone; Patient was not unsteady and did not take longer than 30 seconds during the timed get up and go test.; Patient reports no falls in the past 6 months. Tacho Knox MD [address] [place] [address], [phone], [facility] 08/02/2022 08:42:27 4 text/html Physical Exam/MaleReported bypatient.PHAPatient is here for a Wellness Visit. He describes his health status as good. Patient's health is the same as last year.Risk Assessment and Lifestyle Change Counseling (Medicare)Reported bypatient.Coronary Artery Disease Risk Assessment:No Family history of coronary artery disease; No personal history of diabetes; No history of peripheral vascular disease, AAA, or carotid disease; No personal history of coronary artery disease Breast Cancer Risk Assessment:No family history of breast cancer; No history of breast cancer or dcis Colon Cancer Risk Assessment:No family history of pre cancerous colon polyps or cancer Lung Cancer Risk Assessment:Has used cigarettes Cognitive/Behavioral Risk Assessment:No personal history of mental illness; No family history of mental illness Safety Risk Assessment:Has grab bars in bathroom; Has rails on steps; No falls; No evidence of abuse/neglect Functional Status:Patient does not have trouble hearing the television or radio when others do not.; Patient does not have to strain or struggle to hear/understand conversations; Patient does not need help with preparing meals, transportation, shopping, taking medicine, managing finances, or other activities of daily living.; Patient does not have visual loss that interferes with daily activities; Does not live alone; Patient was not unsteady and did not take longer than 30 seconds during the timed get up and go test.; Patient reports no falls in the past 6 months. Diet:Counseled about appropriate portion size; Counseled about eating a diet low in trans and saturated fats and high in fiber, fruits and vegetables; Counseled about appropriate calcium intake and good dietary sources of calcium.; Counseled about the importance of maintaining a positive calcium balance and taking 1000 iu Vitamin D daily.; Counseled about decreasing carbohydrates; Counseled about decreasing salt in diet; Discussed the value of a Mediterranean diet , and eating more fruits and vegetables Exercise counseling:Discussed the importance of daily physical activity; Discussed the importance of weight bearing exercise Safety:Counseled about protecting skin from the sun and lowering the risk of skin cancer; Counseled about avoiding excessive and unsafe alcohol intake; Counseled about use of helmets for high velocity activiities; Counseled about home safety including use of smoke detectors, CO detectors, keeping home water temperature less than 120; Counseled about use of seat belts; An audit alcohol screening was performed and scored. Patient was asked about alcohol use. Advised about risks of alcohol. Personal risk was assessed. Patient agreed to plan and given information about available resources if needed. Discussion including screening and scoring greater than 7.5 minutes..Social DeterminantsReported bypatient.Living situationsteady place to live Living situation...do you have problems with the following:none of the above In the past 12 months, have you worried your food would run out before you had money to buy more?never true Within the past 12 months, the food just didn't last and you didn't have money to get more.never true Has lack of transportation kept you from medical appointments, meetings, work, etc?no In the past 12 months has the electric, gas, [employer] or water company threatened to shut off services?no How hard is it for you to pay the very basics like food, house, medical care and housing?not hard at all Patient presents to the office today for an annual wellness visit. Pt c/o of LT ear pain and bilateral elbow pain.April/May - Rt elbow pain following qod pushup regimen. #) left ear pain - taking tylenol #) Colon Cx screening - due next year(5 year recall) #)Prostate Cx screening - 2-3 times nocturia. declines psa. #) alcohol - 2 beers daily#) no anxiety/depression SANKET GILL, DO [address] [place] [address], [place], [phone], [facility] 03/10/2024 09:59:18 5 text/html Risk Assessment and Lifestyle Change Counseling (Medicare)Reported bypatient.Safety Risk Assessment:Has grab bars in bathroom; Has rails on steps; No falls; No evidence of abuse/neglect Functional Status:Patient does not have trouble hearing the television or radio when others do not.;Patient has to strain or struggle to hear/understand conversations.; Patient does not need help with preparing meals, transportation, shopping, taking medicine, managing finances, or other activities of daily living.; Patient does not have visual loss that interferes with daily activities;Lives alone; Patient was not unsteady and did not take longer than 30 seconds during the timed get up and go test.; Patient reports no falls in the past 6 months. Diet:Counseled about appropriate calcium intake and good dietary sources of calcium.; Counseled about the importance of maintaining a positive calcium balance and taking 1000 iu Vitamin D daily.; Counseled about decreasing carbohydrates; Discussed the value of a Mediterranean diet , and eating more fruits and vegetables Exercise counseling:Discussed the importance of daily physical activity; Discussed the importance of weight bearing exercise Safety:Counseled about protecting skin from the sun and lowering the risk of skin cancer; Counseled about avoiding excessive and unsafe alcohol intake; Counseled about home safety including use of smoke detectors, CO detectors, keeping home water temperature less than 120Social DeterminantsReported bypatient.Living situationno concerns Living situation...do you have problems with the following:no concerns In the past 12 months, have you worried your food would run out before you had money to buy more?no concerns Within the past 12 months, the food just didn't last and you didn't have money to get more.no concerns Has lack of transportation kept you from medical appointments, meetings, work, etc?no In the past 12 months has the electric, gas, o[employer] or water company threatened to shut off services?no How hard is it for you to pay the very basics like food, house, medical care and housing?no concerns 75 yo male presenting for MW visit.He recently saw his dentist who recommended check 'spot' in mouth, L lower sidenew growth on L arm 3-4 mos, has not changed in appearance, non-painful nonpruritic new onset pain in R groin, first felt while reaching high shelf/against counter; describes as 'small electric shock' - reoccurs with strong sneezing SANKET GILL, DO [address] [place] [address], [place], [phone], [facility] 03/28/2025 13:29:43
== END 2025-04-18 09:54 | disposition home or self-care (01) ==
LOC: HO.HGS 08:59
PROVIDERS: Visit Provider Surgery
DX: K40.90 Unilateral inguinal hernia, without obstruction or gangrene, not specified as recurrent (principal)
CPT/HCPCS: 99203

== ENCOUNTER → 2025-04-18 08:58 | Outpatient (BNVA) | payer MEDICARE, OTHER, SELFPAY | PROVIDERS: Visit Provider Surgery | DX: K40.90 Unilateral inguinal hernia, without obstruction or gangrene, not specified as recurrent (principal) | CPT/HCPCS: 99202 ==

== ENCOUNTER 2025-05-10 08:45 | Day surgery (SDC) | payer MEDICARE, OTHER, SELFPAY ==
--- OUTSIDE RECORDS SUMMARY | 2025-04-25 10:10 | XMS_ITS | Data Portability ---
Author Organization [place] - [facility], , [facility] Address [address] [place] [address] Care Team Providers Care Tire Service Supervisor Name Role Phone ADONAY CALDERON Primary Care Provider Assessment Encounter Date Assessment Date Assessment LastModified [...] lives majority of the year in the [facility]. He returns to visit family and friends [...] some mild great toenail fungal involvement with odhk-frt-vsbihre solutions. He denies any pain. Okay to [...] meeting your goals. Please visit our website [email or web address] for more patient resources. As part of [...] Lab PSA, serum or plasma 2024 025 [facility], [address] [place] [address], [address], 12:20:17 CBC 2024 025 [facility], [address] [place] [address], [address], 10:58:30 Referral None recorded. Procedures None recorded. Surgeries None recorded. Imaging US, lower extremity, nonvascular - right inguinal pain, r/o hernia 2024 025 [facility] (Imaging), [address], [place], [address], 09:18:46 Medication Orders None recorded. Patient TargetsNo targets recorded. Patient Instructions Encounter Date Encounter Id Patient Instructions Last Modified By Organization Details Last Modified Time 07/11/2020 [id number] preventing falls : care instructions hsimkin Not [...] expectancy. [email or web address] Not available 07/11/2020 14:03:11 07/20/2021 [id number] preventing falls : care instructions [email or web address] Not [...] them. 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, respi rator y speci men covid-19 comment Not Available [facility] (Outpatient) [address] [place], [address], 06/27/2020 10:40:02 06/27/20 20 06/27/2020 SARS CoV 2 RNA (COVI D-19) , QL, 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 supervisor-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, respi rator y speci men covid testing status Sent to [facility] Not Available [facility] (Outpatient) [address] [place], [address], 06/27/2020 10:40:02 06/27/20 20 06/28/2020 SARS CoV 2 RNA (COVI D-19) , QL, blacksmith supervisor-P CR, respi rator y speci men specimen source/descr iption MARTIN DAUGHERTY AL SWAB Not Available [facility] (Outpatient) [address] [place], [address], 06/28/2020 07:18:39 06/27/20 20 06/28/2020 SARS CoV 2 RNA (COVI D-19) , QL, 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 Not Available [facility] (Outpatient) [address] [place], [address], 06/28/2020 07:18:39 06/30/20 20 07/04/2020 patho logy study path report [facility] [address] [place] [address] Lab Direc tor: Karie hicks MD Surgi [...] BS Tacho almanza MD, BA Not Available [facility] (Outpatient) [address] [place], [address], 07/04/2020 16:16:16 07/06/20 20 07/06/2020 lipid panel , serum cholesterol 205 mg/dL <200 mg/dl Deepti able 200-2 39 mg/dl Borde rline High >240 mg/dl High Not Available [address], [address], 07/06/2020 15:57:32 07/06/2007/06/2020 lipid panel , serum triglyceride s 72 mg/dL <150 mg/dL Winter l 150-1 99 mg/dL Borde rline High 200-4 99 mg/dL High >500 mg/dL Very High Not Available [address], [address], 07/06/2020 15:57:32 07/06/2007/06/2020 lipid panel , serum direct HDL 61 mg/dL <40 mg/dl - Major Risk for CHD >60 mg/dl - Negat alba Risk for CHD Not Available [address], [address], 07/06/2020 15:57:32 07/06/2007/06/2020 gluco se, QN [mass /volu me], serum or plasm a glucose 92 mg/dL 70-100 Not Available [address], [address], 07/06/2020 15:57:33 07/06/2007/06/2020 LDL, calcu lated , serum (OBS) LDL - calculated 129.6 RISK CATEG ORY LDL GOAL _ CHD or CHD Risk Equiv alent s <100 mg/dl (10-y ear risk >20%) 2+ Risk Facto rs <130 mg/dl (10-y ear risk <= 20%) 0-1 Risk Facto r <160 mg[facility] e with 0-1 risk facto r have a 10 year risk <10%, thus 10 year risk asses ment in peopl e with 0-1 risk facto r is not preston shabana. Not Available [address], [address], 07/06/2020 15:57:33 07/16/20 21 07/16/2021 LIPID PANEL cholesterol 206 mg/dL <200 mg/dl Deepti able 200-2 39 mg/dl Borde rline High >240 mg/dl High Not Available [address], [address], 07/16/2021 15:01:56 07/16/20 21 07/16/2021 LIPID PANEL triglyceride s 74 mg/dL <150 mg/dL Winter l 150-1 99 mg/dL Borde rline High 200-4 99 mg/dL High >500 mg/dL Very High Not Available [address], [address], 07/16/2021 15:01:56 07/16/20 21 07/16/2021 LIPID PANEL direct HDL 63 mg/dL <40 mg/dl - Major Risk for CHD >60 mg/dl - Negat alba Risk for CHD Not Available [address], [address], 07/16/2021 15:01:56 07/16/20 21 07/16/2021 GLUCO SE glucose 98 mg/dL 70-100 Not Available [address], [address], 07/16/2021 15:01:56 07/16/20 21 07/16/2021 LDL - [...] r is not preston waltony. Not Available [address], [address], 07/16/2021 15:01:57 07/25/20 22 07/25/2022 LIPID PANEL cholesterol 248 mg/dL <200 mg/dl Deepti able 200-2 39 mg/dl Borde rline High >240 mg/dl High Not Available [address], [address], 07/25/2022 12:10:30 07/25/20 22 07/25/2022 LIPID PANEL triglyceride s 126 mg/dL <150 mg/dL Winter l 150-1 99 mg/dL Borde rline High 200-4 99 mg/dL High >500 mg/dL Very High Not Available [address], [address], 07/25/2022 12:10:30 07/25/20 22 07/25/2022 LIPID PANEL direct HDL 66 mg/dL <40 mg/dl - Major Risk for CHD >60 mg/dl - Negat alba Risk for CHD Not Available [address], [address], 07/25/2022 12:10:30 07/25/20 22 07/25/2022 GLUCO SE glucose 94 mg/dL 70-100 Not Available [address], [address], 07/25/2022 12:10:31 07/25/20 22 07/25/2022 LDL - [...] r is not preston shabana. Not Available [address], [address], 07/25/2022 12:10:33 03/02/20 24 03/02/2024 LIPID PANEL cholesterol 208 mg/dL <200 mg/dl Deepti able 200-2 39 mg/dl Borde rline High >240 mg/dl High Not Available [address], [address], 03/02/2024 12:32:31 03/02/20 24 03/02/2024 LIPID PANEL triglyceride s 89 mg/dL <150 mg/dL Winter l 150-1 99 mg/dL Borde rline High 200-4 99 mg/dL High >500 mg/dL Very High Not Available [address], [address], 03/02/2024 12:32:31 03/02/20 24 03/02/2024 LIPID PANEL direct HDL 65 mg/dL <40 mg/dl - Major Risk for CHD >60 mg/dl - Negat alba Risk for CHD Not Available [address], [address], 03/02/2024 12:32:31 03/02/20 24 03/02/2024 GLUCO SE glucose 91 mg/dL 70-100 Not Available [address], [address], 03/02/2024 12:32:32 03/02/20 24 03/02/2024 LDL - CALCU LATED LDL - calculated 125.2 RISK CATEG ORY LDL GOAL _ CHD or CHD Risk Equiv alent s <100 mg/dl (10-y ear risk >20%) 2+ Risk Facto rs <130 mg/dl (10-y ear risk <= 20%) 0-1 Risk Facto r <160 mg[facility] with 0-1 risk facto r have a 10 year risk <10%, thus 10 year risk asses ment in peopl e with 0-1 risk facto r is not preston donald. Not Available [address], [address], 03/02/2024 12:32:33 03/07/20 25 03/08/2025 LIPID PANEL cholesterol 191 mg/dL <200 mg/dl Deepti able 200-2 39 mg/dl Borde rline High >240 mg/dl High Not Available [address], [address], 03/08/2025 16:26:13 03/07/20 25 03/08/2025 LIPID PANEL triglyceride s 57 mg/dL <150 mg/dL Winter l 150-1 99 mg/dL Borde rline High 200-4 99 mg/dL High >500 mg/dL Very High Not Available [address], [address], 03/08/2025 16:26:13 03/07/20 25 03/08/2025 LIPID PANEL direct HDL 65 mg/dL <40 mg/dl - Major Risk for CHD >60 mg/dl - Negat alba Risk for CHD Not Available [address], [address], 03/08/2025 16:26:13 03/07/20 25 03/08/2025 GLUCO SE glucose 103 mg/dL 70-100 high Not Available [address], [address], 03/08/2025 16:26:14 03/07/20 25 03/08/2025 LDL - CALCU LATED LDL - calculated 115 RISK CATEG ORY LDL GOAL _ CHD or CHD Risk Equiv alent s <100 mg/dl (10-y ear risk >20%) 2+ Risk Facto rs <130 mg/dl (10-y ear risk <= 20%) 0-1 Risk Facto r <160 mg/dl [facility] all peopl e with 0-1 risk facto r have a 10 year risk <10%, thus 10 year risk asses ment in peopl e with 0-1 risk facto r is not preston donald. Not Available [address], [address], 03/08/2025 16:26:15 03/15/20 25 03/15/2025 CBC WBC 11.33 K/ L 4.23-9 .07 high Not Available [address], [address], 03/15/2025 10:58:30 03/15/20 25 03/15/2025 CBC RBC 5.23 M/ L 4.63-6 .08 Not Available [address], [address], 03/15/2025 10:58:30 03/15/20 25 03/15/2025 CBC HGB 15.9 g/dL 13.7-1 7.5 Not Available [address], [address], 03/15/2025 10:58:30 03/15/20 25 03/15/2025 CBC HCT 47.5 % 40.1-5 1.0 Not Available [address], [address], 03/15/2025 10:58:30 03/15/20 25 03/15/2025 CBC MCV 90.8 fL 79.0-9 2.2 Not Available [address], [address], 03/15/2025 10:58:30 03/15/20 25 03/15/2025 CBC MCH 30.4 pg 25.7-3 2.2 Not Available [address], [address], 03/15/2025 10:58:30 03/15/20 25 03/15/2025 CBC MCHC 33.5 g/dL 32.3-3 6.5 Not Available [address], [address], 03/15/2025 10:58:30 03/15/20 25 03/15/2025 CBC plt 231 K/ L 163-33 7 Not Available [address], [address], 03/15/2025 10:58:30 03/15/20 25 03/15/2025 CBC MPV 10.4 fL 9.4-12 .4 Not Available [address], [address], 03/15/2025 10:58:30 03/15/20 25 03/15/2025 CBC neut% 38.2 % 34.0-6 7.9 Not Available [address], [address], 03/15/2025 10:58:30 03/15/20 25 03/15/2025 CBC neut# 4.33 1.78-5 .38 Not Available [address], [address], 03/15/2025 10:58:30 03/15/20 25 03/15/2025 CBC lymph % 53.0 % 21.8-5 3.1 Not Available [address], [address], 03/15/2025 10:58:30 03/15/20 25 03/15/2025 CBC lymph # 6.01 K/ L 1.32-3 .57 high SREV= Slide [facility]. Not Available [address], [address], 03/15/2025 10:58:30 03/15/20 25 03/15/2025 CBC mono% 6.4 % 5.3-12 .2 Not Available [address], [address], 03/15/2025 10:58:30 03/15/20 25 03/15/2025 CBC mono# 0.72 0.30-0 .82 Not Available [address], [address], 03/15/2025 10:58:30 03/15/20 25 03/15/2025 CBC eo% 1.3 % 0.8-7. 0 Not Available [address], [address], 03/15/2025 10:58:30 03/15/20 25 03/15/2025 CBC eo# 0.15 0.04-0 .54 Not Available [address], [address], 03/15/2025 10:58:30 03/15/20 25 03/15/2025 CBC baso% 0.8 % 0.2-1. 2 Not Available [address], [address], 03/15/2025 10:58:30 03/15/20 25 03/15/2025 CBC baso# 0.09 0.00-0 .08 high Not Available [address], [address], 03/15/2025 10:58:30 03/15/20 25 03/15/2025 CBC RDW-CV 12.3 % 11.6-1 4.4 Not Available [address], [address], 03/15/2025 10:58:30 03/15/20 25 03/15/2025 CBC Ig% 0.300 % 0.000- 1.500 Ig % >0.5 Indic ates possi ble Left Shift Not Available [address], [address], 03/15/2025 10:58:30 03/15/20 25 03/15/2025 CBC Ig# 0.030 0.000- 0.093 Not Available [address], [address], 03/15/2025 10:58:30 03/15/20 25 03/15/2025 CBC NRBC% 0.0 % 0.0-0. 2 Not Available [address], [address], 03/15/2025 10:58:30 03/15/20 25 03/15/2025 CBC NRBC# 0.000 0.000- 0.012 Not Available [address], [address], 03/15/2025 10:58:30 03/15/20 25 03/15/2025 PSA PSA 0.87 NG/mL 0.00-4 .00 Not Available [address], [address], 03/15/2025 12:20:17 03/16/20 25 03/15/2025 US, lower [...] mm. Readeusebio kennedy Physic monie: Marcell Soto [facility] (Imaging) [address], [place], [address], 03/16/2025 14:22:01 Result Notes None recorded. Problems Name Problem SNOMED Code Status Onset Date Resolution Date Notes Provider Name and Address Organization Details Recorded Time Active 2019 son 2018 from overdose Tacho Knox MD [address] [place] [address], [address] , [facility] 0 14:51:01 Adenomat ous polyp of colon 943821758 Active 2021 Tacho Knox MD [address] [place] [address], [address] , [facility] 2 08:38:16 Onychomy cosis of toenails 077983095 Active 2021 Tacho Knox MD [address] [place] [address], [address] , [facility] 2 08:38:19 Advance care planning Active 2021 see note today Tacho Knox MD [address] [place] [address], [address] , [facility] 2 08:42:22 Mixed hyperlip idemia 762947057 Active 2004 Not Available [facility] 0 02:38:22 Internal hemorrho ids 72941085 Completed 200409/15/2013 Not Available [facility] 3 02:03:13 Dyspnea 825095713 Completed 200709/15/2013 Not Available [facility] 3 02:02:46 Finding by method 046675586 Completed 200409/15/2013 Not Available [facility] 3 02:01:56 Breathin g painful 28575799 Completed 200409/15/2013 Not Available [facility] 3 02:02:56 Neoplasm of uncertai n behavior of skin 55917026 Completed 200409/15/2013 Not Available [facility] 3 02:01:52 Hemorrha ge of rectum and anus 267965676 Completed 200309/15/2013 Not Available [facility] 3 02:03:17 Hemangio ma of skin and subcutan eous tissue 156469905 Completed 10/11/2013 Tacho Knox MD [address] [place] [address], [address] , [facility] 3 11:53:35 Hyperlip idemia 24662329 Completed 200710/11/2013 Tacho Knox MD [address] [place] [address], [address] , [facility] 3 11:53:35 Nonvenom ous insect bite of multiple sites with infectio n 374663052 Completed 200309/15/2013 Not Available [facility] 3 02:04:12 Pure hypercho lesterol emia 168964363 Completed 200610/11/2013 Tacho Knox MD [address] [place] [address], [address] , [facility] 3 11:53:35 Problem Notes None recorded. Procedures Surgical History Date Name Laterality Status Provider Name and Address Organization Details Recorded Time 03/14/20 25 Medicare Wellness Visit completed Agueda King MA [facility] 03/11/2025 14:44:56 03/10/20 24 Medicare Wellness Visit completed Lalita Moore MA [facility] 03/10/2024 09:10:51 08/02/20 22 Medicare Wellness Visit completed Jennifer Lorenz MA [facility] 08/02/2022 07:46:35 08/02/20 22 Alcohol use screening completed Jennifer Lorenz MA [facility] 08/02/2022 07:46:35 08/02/20 22 Cardiovascular disease risk reduction counseling completed Jennifer Lorenz MA [facility] 08/02/2022 07:46:35 08/02/20 22 Advanced Care Planning completed Tacho Knox MD [address] [place] [address], [address], [facility] 08/02/2022 08:40:37 07/20/20 21 Medicare Wellness Visit completed Geovanna Alexander MA [facility] 07/20/2021 13:34:32 07/20/20 21 Alcohol use screening completed Geovanna Alexander MA [facility] 07/20/2021 13:34:32 07/11/20 20 Medicare Wellness Visit completed Geovanna Alexander MA [facility] 07/11/2020 14:03:12 07/11/20 20 prevention-cardiov ascular risk reduction counseling completed Geovanna Alexander MA [facility] 07/11/2020 14:03:12 07/11/20 20 prevention-annual alcohol misuse screening completed Geovanna Alexander MA [facility] 07/11/2020 14:03:12 03/11/20 19 Medicare Wellness Visit completed Geovanna Alexander MA [facility] 03/11/2019 07:47:21 08/14/20 17 Medicare Wellness Visit completed Geovanna Alexander MA [facility] 08/14/2017 13:55:03 08/05/20 16 Medicare Wellness Visit completed Elle Garcia LPN [facility] 08/05/2016 09:29:12 05/05/20 15 Medicare Wellness Visit completed Geovanna Alexander MA [facility] 05/05/2015 09:14:58 08/03/20 10 Excision completed Tacho Knox MD [address] [place] [address], [phone] 08/03/2010 14:52:04 Imaging Results None recorded. Procedure [...] Address Organization Details Last Updated DateTime 4 74760.5 3 g 25.5 kg/m2 168.91 cm 52 /min 12 /min 99 % 99 % 110 mm[Hg] 70 mm[Hg] Lalita Moore [facility] 4 09:17:27 Date Recorded Oxygen saturation Oxygen saturation in Arterial blood by Pulse oximetry Heart rate Body weight Body mass index (BMI) Body height Systolic blood pressure Diastolic blood pressure Provider Name and Address Organization Details Last Updated DateTime 5 98 % 98 % 54 /min 92114.7 g 25 kg/m2 168.91 cm 116 mm[Hg] 60 mm[Hg] Agueda King [facility] 5 09:52:40 Date Recorded Body weight Provider Name an d Address Organization Details Last Updated DateTime 07/11/2020 40755.63 g Geovanna fuentes [facility] 07/11/2020 14:03:50 Date Recorded Body height Body mass index (BMI) Body weight Systolic blood pressure Diastolic blood pressure Provider Name and Address Organization Details Last Updated DateTime 07/20/2021 168.91 cm 2.5 kg/m2 7076.04 g 110 mm[Hg] 64 mm[Hg] Geovanna Alexander [facility] 1 13:48:53 Date Recorded Body height Body mass index (BMI) Body weight Heart rate Systolic blood pressure Diastolic blood pressure Provider Name and Address Organization Details Last Updated DateTime 2 168.91 cm 25.8 kg/m2 55170.9 6 g 60 /min 118 mm[Hg] 68 mm[Hg] Jennifer Lorenz [facility] 2 07:52:26 Social History Question Answer Notes LastModified by Organizat ion Details LastModified Time Tobacco Smoking Status Former Smoker quit 1972 JUAN CARLOS Sanchez, [facility] 07/16/2011 09:22:23 Do You Wear A Helmet [...] Or The Highest Degree You Have Received? [id number] Information not available 07/20/2021 How Many Days [...] Of Your Most Recent Tobacco Screening? 03/10/2024 [email or web address] Information not available 03/10/2024 How Many Children Do You Have? 1 Son Committed Suicide -Has Grown Daughter Information not available 07/16/2011 Are There Any Occupational Health Risks Where You Work? None [email or web address] Information not available 08/05/2016 What Is Your Current Pack Years? 10packyears [email or web address] Information not available 03/10/2024 What Is Your [...] How Much Tobacco Do You Smoke? No Information not available 03/10/2024 What Types Of [...] Tdap 0 completed Not Available [facility] 11/13/2019 02:34:55 Pneumococcal conjugate PCV 13 6 completed Not Available [facility] 11/13/2019 02:21:06 zoster live 6 completed Not Available [facility] 11/13/2019 02:31:10 pneumococcal polysaccharide PPV23 9 completed Not Available [facility] 11/13/2019 02:24:00 Td (adult), 2 Lf tetanus toxoid, preservative free, adsorbed 1 completed JUAN CARLOS Sanchez [facility] 07/20/2021 14:18:22 COVID-19, mRNA, LNP-S, PF, 100 mcg/0.5mL dose or 50 mcg/0.25mL dose 1 completed JUAN CARLOS Sanchez [facility] 07/20/2021 13:38:41 COVID-19, mRNA, LNP-S, PF, 100 mcg/0.5mL dose or 50 mcg/0.25mL dose 1 completed JUAN CARLOS Sanchez [facility] 07/20/2021 13:38:49 Past Encounters Encounter ID Performer Location Encounter Start Date Encounter Closed Date Diagnosis/Indication Diagnosis SNOMED-CT Code Diagnosis ICD10 Code Diagnosis Note [id number] Tacho Knox MD , [facility], OFFICE [address] [place] [address] 02/15/2002 10:00:00 11/16/2008 02:02:29 [id number] Steve Bennett MD FP, [facility], OFFICE [address] [place] [address] 04/20/2004 13:13:38 04/20/2004 17:51:21 [id number] Aiyana Colón NP FP, [facility], OFFICE [address] [place] [address] 10/25/2004 08:35:09 10/25/2004 17:07:01 [id number] [facility] - [address] [place] [address] 10/30/2004 14:15:56 10/30/2004 14:18:23 [id number] MD AUBRIE Sellers, [facility], OFFICE [address] [place] [address] 03/20/2005 07:52:06 03/20/2005 12:37:17 [id number] [facility] - [facility] [address] [place] [address] 03/20/2005 08:39:49 03/20/2005 08:40:07 [id number] Tacho Knox MD , [facility], OFFICE [address] [place] [address] 09/03/2005 16:10:35 11/16/2008 02:02:29 [id number] [facility] [address] [place] [address] 09/03/2005 16:34:22 11/16/2008 02:02:29 [id number] [facility] [address] [place] [address] 09/03/2005 00:00:00 11/16/2008 02:02:29 [id number] MD AUBRIE Sellers, [facility], OFFICE [address] [place] [address] 11/24/2006 08:58:05 11/24/2006 11:20:56 [id number] [facility] - [address] [address] 11/24/2006 09:28:54 11/24/2006 09:29:01 [id number] [facility] - [address] [address] 01/06/2008 10:16:56 01/06/2008 10:17:03 [id number] MD AUBRIE eSllers, [facility], OFFICE [address] [place] [address] 01/06/2008 09:09:00 11/16/2008 02:02:29 [id number] Amanda Simpson NP , [facility], [address]ICE [address] [place] [address] 12/13/2008 07:16:33 12/14/2008 12:30:15 [id number] SAMUEL Smyth, [facility], OFFICE [address] [place] [address] 11/07/2009 08:12:57 11/07/2009 11:21:53 [id number] MD AUBRIE Sellers, [facility], OFFICE [address] [place] [address] 08/03/2010 13:58:53 08/06/2010 12:50:06 [id number] MD AUBRIE Sellers, [facility], OFFICE [address] [place] [address] 07/16/2011 08:45:41 07/16/2011 09:51:07 [id number] MD AUBRIE Sellers, [facility], [address]ICE [address] [place] [address] 04/20/2012 15:58:40 04/20/2012 16:22:11 [id number] Tacho Knox MD , [facility], OFFICE [address] [place] [address] 10/09/2012 07:59:53 10/09/2012 08:48:18 [id number] MD AUBRIE Sellers, [facility], [address]ICE [address] [place] [address] 10/11/2013 08:57:33 10/11/2013 13:19:35 Adult health examination 890173634 see Risk Assessment and Lifestyle Change Counseling section above Counseling [id number] Mixed hyperlipidemia 093851629 [id number] MD AUBRIE Sellers, [facility], [address]ICE [address] [place] [address] 05/05/2015 08:46:30 05/05/2015 09:58:15 Adult health examination 666935852 see Risk Assessment and Lifestyle Change Counseling section above Counseling [id number] MD AUBRIE Sellers, [facility], OFFICE [address] [place] [address] 08/05/2016 09:14:15 08/05/2016 10:07:54 Adult health examination 485225845 Z00.00 see Risk Assessment and Lifestyle Change Counseling section above Counseling 270542862 Z71 .9 Active or passive immunization 161824752 Z23 [id number] Tacho Knox MD , [facility], OFFICE [address] [place] [address] 02/28/2017 08:25:08 02/28/2017 08:53:48 Mediastinal lymphadenopathy 68329235 R59.0 [id number] Tacho Knox MD , [facility], OFFICE [address] [place] [address] 08/14/2017 13:23:20 08/14/2017 14:44:35 Adult health examination 634031887 Z00.00 see Risk Assessment and Lifestyle Change Counseling section above Counseling 348502015 Z71 .9 Mediastina l lymphadenopathy 54120277 R59.0 [id number] Tacho Knox MD , [facility], OFFICE [address] [place] [address] 03/11/2019 07:33:13 03/12/2019 09:35:31 Adult health examination 518386402 Z00.00 see Risk Assessment and Lifestyle Change Counseling section above Counseling 919236968 Z71 .9 Depression screening 171 073666 Z13.89 depression screening tool administer ed, entered into emr, scored and discussed, time greater than 7.5 minutes Atypical chest pain 1025 [address] R07.89 Active or passive immunization 698547863 Z23 [id number] Tacho Knox MD , [facility], OFFICE [address] [place] [address] 07/11/2020 13:58:45 07/13/2020 09:45:30 Adult health examination 572327374 Z00.00 see Risk Assessment and Lifestyle Change Counseling section above Counseling 915055173 Z71 .9 including cardiovasc ular risk reduction counseling Screening for alcohol abuse 891591142 Z13.39 Mixed hyperlipidemia 267 027086 E78.2 Chronic constipation 236 235188 K59.09 Adenomatou s polyp of colon 347705542 D12.6 [id number] Tacho Knox MD , [facility], OFFICE [address] [place] [address] 07/20/2021 13:33:24 07/20/2021 14:17:54 Adult health examination [id number] Z00.00 see Risk Assessment and Lifestyle Change Counseling section above Counseling [id number] Z71 .9 including cardiovasc ular risk reduction counseling Depression screening 171 Z13.31 depression screening tool administer ed, entered into emr, scored and discussed, time greater than 7.5 minutes Screening for alcohol abuse 603254114 Z13.39 Hemorrhoids 80838288 K64 .9 Active or passive immunization 151070515 Z23 Adenomatou s polyp of colon 177703193 D12.6 [id number] Tacho Knox MD , [facility], [address] [place] [address] 08/02/2022 07:30:13 08/02/2022 08:29:16 Adult health examination 616450412 Z00.00 see Risk Assessment and Lifestyle Change Counseling section above Counseling 035825236 Z71 .9 including cardiovasc ular risk reduction counseling Depression screening 171 Z13.31 depression screening tool administer ed, entered into emr, scored and discussed, time greater than 7.5 minutes Screening for alcohol abuse 511213927 Z13.39 Mixed hyperlipidemia 267 695858 E78.2 Adenomatou s polyp of colon 974779867 D12.6 Onychomyco sis of toenails 011136774 B35.1 Advance care planning 71 3728325 Z71.89 [id number] SANKET GILL DO FP, [facility], [address] [place] [address] 03/10/2024 08:58:22 03/11/2024 10:51:44 Adult health examination 166554053 Z00.00 The importance of a healthy well [...] tool administer ed Screening for alcohol abuse 023828327 Z13.39 Alcohol use screening tool administer ed Abdominal aortic aneurysm screening 653090623 Z13.6 Declines testing/sc reening. Screening for malignant neoplasm of prostate 142194876 Z12.5 Declines testing for PSA. [id number] DO AUBRIE ROMERO, [facility], [address] [place] [address] 03/14/2025 09:08:38 03/14/2025 10:25:45 Adult health examination 830698771 Z00.00 The importance of a healthy well [...] home safety were discussed Depression screening 171 242689 Z13.31 depression screening tool administer ed Screening for alcohol abuse 225715422 Z13.39 Alcohol use screening tool administer ed Mixed hyperlipidemia 267 692618 E78.2 Check lipids, advised to follow a heart healthy diet and; increase exercise. Screening for malignant neoplasm of prostate 977935278 Z12.5 agreeable to testing for PSA. Groin mass 311149939 R19 .09 Concern for R inguinal hernia. [...] 2 [employer] (MEDICARE SUPPLEMENT) Gemini Jacobson Jr [id number] Gemini Jacobson Jr 04/10/2025 1 [place]IC[place]: NATIONAL GOVERNMENT SERVICES Gemini España Jr [id number] Gemini Jacobson Jr 04/13/2025 2 [employer] - PLAN HF (MEDICARE SUPPLEMENT) Gemini España [id number] Gemini Jacobson Jr 04/10/2025 1 [facility] (O) [id number] Gemini Jacobson [id number] Gemini Huberluis daniel Ring 04/10/2025 1 BC-[place]: BLUE CHOICE (POS) [id number] Gemini España [id number] Gemini Huberluis daniel Ring 04/10/2025 1 [facility] (PPO) [id number] Gemini Huberluis daniel Ring [id number] Gemini Grullon EliasAdithyaRochester Jr 11/07/2009 1 *SELF PAY* Jose D costa Mitchel MayoJimenez Jr 04/10/2025 1 MEDIC[place]: NATIONAL [employer] SERVICES Gemini España [id number] Gemini Grullon EliasDevJimenez Ring 04/10/2025 2 [facility] (PPO) [id number] Gemini Huberell [id number] Gemini Huberluis daniel Ring Notes Date Note [...] the past 6 months. Tacho Knox MD [address] [place] [address], [phone], [facility] 07/11/2020 14:51:11 1 text/html Physical Exam/MaleReported bypatient.PHAPatient [...] the past 6 months. Tacho Knox MD [address] [place] [address], [phone], [facility] 07/22/2021 05:37:08 2 text/html Physical Exam/MaleReported bypatient.PHAPatient [...] the past 6 months. Tacho Knox MD [address] [place] [address], [phone], [facility] 08/02/2022 08:42:27 4 text/html Physical Exam/MaleReported bypatient.PHAPatient [...] past 12 months has the electric, gas, [employer] or water company threatened to shut off [...] beers daily#) no anxiety/depression SANKET GILL, DO [address] [place] [address], [place], [phone], [facility] 03/10/2024 09:59:18 5 text/html Risk Assessment and [...] reoccurs with strong sneezing SANKET GILL, DO [address] [place] [address], [place], [phone], [facility] 03/28/2025 13:29:43
[2025-05-06 08:49] VITALS: BMI 26.0
--- NOTE | 2025-05-09 12:05 | HO.ANESPROP2 ---
Documented by User: Opal Das NP 05/09/25 12:07 HPI - Anesthesia Eval Consult details Narrative: 75yo M for?Right Hernia Inguinal Reducible with mesh PMFSH Active Problems Active Problems: All Active Problems Reducible right inguinal hernia (Acute) Past Medical History Medical History Mixed hyperlipidemia Reducible right inguinal hernia Surgical History Surgical History (Updated 05/10/25 @ 09:22 by Sigrid Hoover RN) Hx of left inguinal hernia repair Social History Social History (Updated 05/06/25 @ 08:48 by Nela Hughes RN) Patient Tobacco Use Status: Former Tobacco user Use of substances other than those prescribed or required for medical reasons: No Have you been hit, kicked, punched, or otherwise hurt by someone within the past year? If so, by whom?: No Are you DNR?: No Advance Directives: No Advance Directives Information Provided: Yes Meds Allergies Allergy/AdvReac Type Severity Reaction Status Date / Time No Known Allergies Allergy Verified 04/18/25 09:19 Home Medications ?Medication ?Instructions ?Recorded ?Confirmed ?Last Taken ?Type cholecalciferol (vitamin D3) 25 25 mcg PO DAILY 05/06/25 05/06/25 Unknown History mcg (1,000 unit) capsule (Vitamin D3) Exam Height,Weight and Vital Signs: Height 5 ft 6 in Weight 73.028 kg Assessment and Plan Assessment Anesthesia Assessment: Chart Reviewed Documented by User: Margi Fregoso MD 05/10/25 11:03 PMFSH Past Medical History Medical History Mixed hyperlipidemia Reducible right inguinal hernia Family History Family history of problems with anesthesia: No Surgical History Surgical History (Updated 05/10/25 @ 09:22 by Sigrid Hoover RN) Hx of left inguinal hernia repair History of Problems with Anesthesia: No Social History Social History (Updated 05/06/25 @ 08:48 by Nela Hughes RN) Patient Tobacco Use Status: Former Tobacco user Use of substances other than those prescribed or required for medical reasons: No Have you been hit, kicked, punched, or otherwise hurt by someone within the past year? If so, by whom?: No Are you DNR?: No Advance Directives: No Advance Directives Information Provided: Yes Meds Allergies Allergy/AdvReac Type Severity Reaction Status Date / Time No Known Allergies Allergy Verified 04/18/25 09:19 Home Medications ?Medication ?Instructions ?Recorded ?Confirmed ?Last Taken ?Type cholecalciferol (vitamin D3) 25 25 mcg PO DAILY 05/06/25 05/06/25 Unknown History mcg (1,000 unit) capsule (Vitamin D3) Exam Airway Mallampati Class: II TM Dist: >3cm Neck ROM: Full Assessment and Plan Assessment Anesthesia Assessment: Anesthesia Plan Discussed Final Anesthetic Review Family History of Problems with Anesthesia: No History of Problems with Anesthesia: No NPO: Yes ASA Class: II Final Preanesthetic Review: No Changes in Pt Med Stat, Meds/Allgs Chart Reviewed, Consent Obtained/Reviewed and Anes Risks/Benef Reviewed Patient Risk: Low Procedure Risk: Low Anesthetic Plan Anesthetic Plan: GA Disposition: Standard PACU
[2025-05-10] VITALS (9 sets, daily range): BP systolic 128–150; BP diastolic 58–77; PULSE 58–70; RESP 13–18; TEMP 36.3–36.9; O2SAT 98–100; BMI 25.0
[2025-05-10] MEDS: Lactated Ringers 1,000 ML 100 ML IVCONT (09:17)
--- NOTE | 2025-05-10 10:47 | MHC.SHP ---
Pre-Procedural Eval Section A - 24 Hr Update-Section A only Date of Service: 05/10/25 Section B - Complete if H&P > 30 days Chief Complaint: Unilateral inguinal hernia, without obstruction or Details of Present Illness: Has a reducible right inguinal hernia; previous repair when he was 15 years old Relevant Social History: Alcohol Use Present Medications: see Short Stay Collaborative assessment Medical History: Significant History (Hyperlipidemia) History of Previous Operations: Relevant previous surgery/procedure and date(s) (Repair of a right inguinal hernia at 15 years of) Allergies: Allergies Allergy/AdvReac Type Severity Reaction Status Date / Time No Known Allergies Allergy Verified 04/18/25 09:19 Review of Systems Sugical H&P ROS: Negative: Constitution, Cardiovascular and Respiratory Exam Surgical H&P Exam: Normal: Heart and Normal: Lungs and Significant Findings: Abdomen (Right inguinal hernia reducible) Plan Diagnosis/Plan: Unchanged I have reviewed the history and physical and performed a pertinent physical examination on my patient. No changes have occurred unless specified. Time Spent With Patient Time: Total time managing care of this patient today ____ minutes.
--- NOTE | 2025-05-10 12:35 | W.PM.OPN ---
Operative Note Operative Note Date of Service: 05/10/25
--- NOTE | 2025-05-10 12:37 | W.PM.OPN ---
Operative Note Operative Note Date of Service: 05/10/25 Narrative: Preop diagnosis: Recurrent right inguinal hernia, reducible Postop diagnosis: Recurrent right inguinal hernia, indirect, reducible Procedure: Repair of recurrent right inguinal hernia with mesh Surgeon: Keith Ch MD orthodontist assistant: JASPREET Suarez The patient is a 75 year old male with note of a reducible mass on the right groin consistent with a reducible right inguinal hernia. He had state that he had hernia repair when he was at age of 15 and this was without mesh on the same side. He understood the technique of the planned procedure as well as the risks, benefits, and alternatives. His brought to the operating room. He was placed supine under general anesthesia via laryngeal mask airway. The right groin was prepped and draped usual sterile fashion. A surgical time-out was done. The patient received cefazolin 2 g IV preoperatively I infiltrated the planned line of incision with lidocaine 1%. I made an incision in the skin along an imaginary line from the anterior superior iliac spine to the pubic ramus with a blade 15. This carried down gently with electrocautery through the full-thickness of the skin and subcutaneous fat. There was note of buttock changes in the subcutaneous fat because of his previous repair. We had difficulty exposing the external oblique aponeurosis because of the scar tissue. Eventually was able to visualize the external oblique aponeurosis overlying the inguinal canal. I opened up the aponeurosis into the external ring and applied hemostats on the divided edges. I did blunt dissection of the underside of the aponeurosis to create space with the mesh. There was note of severe fibrotic changes and we had difficult planes in the area. We had to therefore proceed slowly to separate the aponeurosis from the rest of the canal. Eventually I was able to see the spermatic cord. I did gentle dissection of the cord with my index finger until was able to pass a Rich[place] drain around this. The vas deferens was visualized. This was protected during the dissection along with the vessels. Again, there was note of heavy scar tissue tethering the cord to the rest of the canal so we had to continue to do gentle dissection to separate this entire cord. I was able to identify what appeared to be an indirect hernia and this was carefully from the cord. This was reduced through the internal ring. I reinforced this ring with a Prolene plug . The plug was secured with Prolene 2 sutures to the shelving edge of the inguinal meant laterally and the internal oblique superiorly and medially. I then proceeded to reinforced the floor of the canal with a keyhole mesh. The tails of the mesh were passed around the cord at the level of the under the ring and were secured together Prolene 2 sutures. I flattened the mesh floor of the canal. I placed a Prolene 2-0 stitch in the inferomedial aspect towards the pubic ramus. I secured the rest of the mesh to the shelving edge of the inguinal meant laterally and the internal oblique superiorly as well as medially. He is note of persistent oozing from the cord. We had to apply electrocautery multiple time achieve hemostasis. We applied ligatures with Polysorb 3-0 on the more obvious bleeding areas. We made sure that we were not catching the testicular vessels as well as the vas deferens Copiously irrigated. I then applied Surgicel snow on these oozing areas on the cord I irrigated and once we confirmed hemostasis, I reapposed the thick subcutaneous fat with Polysorb 3-0 simple interrupted sutures. Skin closure was achieved with Polysorb 4-0 subcuticular running sutures. The area was infiltrated with a Marcaine 0.5% for postop analgesia. Dressings were applied. The procedure was completed . The patient tolerated procedure well. There were no immediate complications. Initial and final counts of sponges and instruments were correct. Estimated blood loss was about 50 cc The patient was extubated without difficulty and transferred to the recovery room with stable vital signs
== END 2025-05-10 14:21 | disposition home or self-care (01) ==
PROVIDERS: Visit Provider Surgery
PROC: (CPT 49520; principal; 2025-05-10 12:10)
DX: K40.91 Unilateral inguinal hernia, without obstruction or gangrene, recurrent (principal); L90.5 Scar conditions and fibrosis of skin; E78.2 Mixed hyperlipidemia; F10.90 Alcohol use, unspecified, uncomplicated; Z87.891 Personal history of nicotine dependence; Z98.890 Other specified postprocedural states; Z79.899 Other long term (current) drug therapy
CPT/HCPCS: 49520; C1781; J0131; J0690; J1100; J2003; J2250; J2405; J2704; J2795; J3010

== ENCOUNTER → 2025-05-10 08:45 | Outpatient (BNV) | payer MEDICARE, OTHER, SELFPAY | PROVIDERS: Visit Provider Surgery | DX: K40.91 Unilateral inguinal hernia, without obstruction or gangrene, recurrent (principal) | CPT/HCPCS: 49520 ==

== ENCOUNTER 2025-05-23 15:08 | Outpatient (AMB) | payer MEDICARE, OTHER, SELFPAY ==
--- NOTE | 2025-05-23 15:10 | MHC.OFFVIS ---
Vital Signs 05/23/25 15:15 Weight 156 lb BP 110/60 Blood Pressure Location Rt brachial Position Sitting Pulse 60 Intake Visit Reasons: s/p RIH w/mesh Intake Note: Patient here s/p repair of recurrent right inguinal hernia with mesh. Patient c/o: no concerns. Reports incisions healing well. Taking Tylenol as needed. 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 Minimal pain. Appetite and bowel function are at baseline. Denies nausea, vomiting, fever, chills. His only concern is scrotal edema and feels that his testicle on the site of the hernia repair is much higher than previously. Denies any urinary symptoms PFSH Medical History (Updated 05/20/25 @ 14:06 by MYCHAL Mcnair) Reducible right inguinal hernia (05/10/25) Mixed hyperlipidemia Reducible right inguinal hernia Surgical History (Updated 05/23/25 @ 15:50 by Maximino Ramirez PA-C) Hx of left inguinal hernia repair Social History (Updated 05/06/25 @ 08:48 by Nela Hughes RN) Patient Tobacco Use Status: Former Tobacco user Review of Systems Const All systems reviewed & are unremarkable except as noted in HPI and below Physical Exam Vital Signs: Last Vital Signs Pulse 60 05/23/25 15:15 BP 110/60 05/23/25 15:15 Const General: comfortable and no acute distress Orientation/consciousness: patient oriented x3 GI Other: Right inguinal hernia repair site appears to be healing well. Incision is intact, clean, dry. No surrounding erythema. Nontender Inspection: No distended Palpation (GI): Soft to palpation, nontender, no guarding and not rigid Other: Moderate Right scrotal edema, I am able to palpate the testicle, it is high riding. Scrotum otherwise appears normal. He has significant bruising of the proximal right upper extremity Neuro General: patient oriented x3 Assessment & Plan Assessment & Plan (1) S/P inguinal hernia repair: Comment: Right Code(s): Z98.890 - Other specified postprocedural states; Z87.19 - Personal history of other diseases of the digestive system Category: Medical Plan 75-year-old male s/p right inguinal hernia repair with mesh on 05/10/2025 returning to the office for routine 2 week follow up. Overall patient is doing well. His only concern is the elevation of his right testicle along with swelling of the scrotum. His pain is minimal at this point. Appetite and bowel function are at baseline. He denies nausea or vomiting. On exam his abdomen is soft and benign incision site appears to be healing well there was no concern for infection at this time. There was a moderate amount of scrotal swelling, I was able to palpate both testicles in the scrotum, the right is slightly elevated but is still in the scrotal sac. Asked my attending physician Dr. Arzola to evaluate this as well. He reassured the patient that this is a normal finding at this stage of postoperative recovery and that this will decrease over time. It is likely that due to the scrotal swelling this is still has the appearance of writing higher, but again this should go away with time. We will continue with activity restrictions no heavy lifting greater than 15-20 lb for the next 2 weeks. Patient will return in 2 weeks for routine 1 month follow-up he can return sooner with any concerns prior Coding Level of Care Code Global (84960) Diagnoses S/P inguinal hernia repair Z98.890; Z87.19
[2025-05-23 15:15] VITALS: BP 110/60; PULSE 60
--- OUTSIDE RECORDS SUMMARY | 2025-05-23 15:36 | XMS_ITS | Encounter Summary ---
Author Organization [facility] Address [address] [place], [place] [id number] Phone Care Team Providers Care Splicing Supervisor Name Role Phone Tacho Knox MD Primary Care Provider [phone] Encounter Details Date Type Department Care Team (Late st Contact Info) Description 06/30/2020 Procedure Pass [facility] Endoscopy Admitting Dept Virtual Department [address] [place] [id number] Social History Tobacco Use Types Packs/Day Years Used Date Smoking Tobacco: Former Smokeless Tobacco: Never Alcohol Use Standard Drinks/Week Comments Yes 12 (1 standard drink = 0.6 oz pu re alcohol) Sex and Gender Information Value Date Recorded Sex Assigned at Not on file Legal Sex Male 10:03 PM EDT Gender Identity Not on file Sexual Orientation Not on file documented as of this encounter Plan of Treatment Upcoming Encounters Date Type Department Care Team (Late st Contact Info) Description 07/21/2025 Procedure Pass [facility]oscopy Admitting Dept Virtual Department [address] [place] [phone] 07/21/2025 9:00 AM EDT Hospital Encounter [facility] Admitting Dept Virtual Department [address] [place] [address] Pedrito Montero MD [address] [place] [phone] 07/21/2025 9:00 AM EDT - 07/21/2025 9:30 AM EDT Surgery [facility]oscopy Admitting Dept Virtual Department [address] [place] [address] Pedrito Montero MD [address] [place] [phone] [email or web address] COLONOSCOPY Scheduled Procedures Name Priority Associated Diagnoses Date/Ti me COLONOSCOPY Personal history of colon polyps, unspecified 07/21/2025 9:00 AM EDT ESOPHAGOGASTRODUODENOSCOPY Personal history of colon polyps, unspecified 07/21/2025 9:00 AM EDT documented as of this encounter Visit Diagnoses Not on filedocumented in this encounter Care Teams Splicing Supervisor Relationship Specialty Start Date End Date Tacho Knox MD [email or web address] PCP - General Family Medicine 06/21/20 documented as of this encounter Additional Source Comments The information contained in this document represents components of the legal health record. It is not the complete legal health record.[facility]
--- OUTSIDE RECORDS SUMMARY | 2025-05-23 15:36 | XMS_ITS | Data Portability ---
Author Organization [place] - [facility], , [facility] Address [address] [place] [address] Care Team Providers Care Engraver [employer] Name Role Phone ADONAY CALDERON Primary Care Provider [phone] Assessment Encounter Date Assessment Date Assessment LastModified [...] lives majority of the year in the [facility]. He returns to visit family and [...] some mild great toenail fungal involvement with [id number] solutions. He denies any pain. Okay to [...] meeting your goals. Please visit our website [email or web address] for more patient resources. As part of [...] Lab PSA, serum or plasma 2024 025 [facility], [address] [place] [address], [address], 12:20:17 CBC 2024 025 [facility], [address] [place] [address], [address], 10:58:30 Referral None recorded. Procedures None recorded. Surgeries None recorded. Imaging US, lower extremity, nonvascular - right inguinal pain, r/o hernia 2024 025 [facility] (Imaging), [address], [place], [address], 09:18:46 Medication Orders None recorded. Patient TargetsNo targets recorded. Patient Instructions Encounter Date Encounter Id Patient Instructions Last Modified By Organization Details Last Modified Time 07/11/2020 [id number] preventing falls : care instructions hsimkin Not [...] expectancy. [email or web address] Not available 07/11/2020 14:03:11 07/20/2021 [id number] preventing falls : care instructions hsimkin Not [...] them. 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) Not Available [facility] (Outpatient) [address] [place], [address], 06/27/2020 10:40:02 06/27/20 20 06/27/2020 SARS CoV 2 RNA (COVI D-19) , QL, film developer-P CR, respi rator y speci men covid-19 comment Not Available [facility] (Outpatient) [address] [place], [address], 06/27/2020 10:40:02 06/27/20 20 06/27/2020 SARS CoV 2 RNA (COVI D-19) , QL, film developer-P CR, respi rator y speci men covid testing status Sent to [facility] Not Available [facility] (Outpatient) [address] [place], [address], 06/27/2020 10:40:02 06/27/20 20 06/28/2020 SARS CoV 2 RNA (COVI D-19) , QL, film developer-P CR, respi rator y speci men specimen source/descr iption MARTIN DAUGHERTY AL SWAB Not Available [facility] (Outpatient) [address] [place], [address], 06/28/2020 07:18:39 06/27/20 20 06/28/2020 SARS CoV 2 RNA (COVI D-19) , QL, film developer-P CR, respi rator y speci men sars-cov [...] 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 Not Available [facility] (Outpatient) [address] [place], [address], 06/28/2020 07:18:39 06/30/20 20 07/04/2020 patho logy study path report [facility] [address] [place] [address] Lab Direc tor: Karie hicks MD Surgi [...] BS Tacho almanza MD, BA Not Available [facility] (Outpatient) [address] [place], [address], 07/04/2020 16:16:16 07/06/20 20 07/06/2020 lipid panel , serum cholesterol 205 mg/dL <200 mg/dl Deepti able 200-2 39 mg/dl Borde rline High >240 mg/dl High Not Available [address], [address], 07/06/2020 15:57:32 07/06/2007/06/2020 lipid panel , serum triglyceride s 72 mg/dL <150 mg/dL Winter l 150-1 99 mg/dL Borde rline High 200-4 99 mg/dL High >500 mg/dL Very High Not Available [address], [address], 07/06/2020 15:57:32 07/06/2007/06/2020 lipid panel , serum direct HDL 61 mg/dL <40 mg/dl - Major Risk for CHD >60 mg/dl - Negat alba Risk for CHD Not Available [address], [address], 07/06/2020 15:57:32 07/06/2007/06/2020 gluco se, QN [mass /volu me], serum or plasm a glucose 92 mg/dL 70-100 Not Available [address], [address], 07/06/2020 15:57:33 07/06/2007/06/2020 LDL, calcu lated , serum (OBS) LDL - calculated 129.6 RISK CATEG ORY LDL GOAL _ CHD or CHD Risk Equiv alent s <100 mg/dl (10-y ear risk >20%) 2+ Risk Facto rs <130 mg/dl (10-y ear risk <= 20%) 0-1 Risk Facto r <160 mg[facility] with 0-1 risk facto r have a 10 year risk <10%, thus 10 year risk asses ment in peopl e with 0-1 risk facto r is not preston shabana. Not Available [address], [address], 07/06/2020 15:57:33 07/16/20 21 07/16/2021 LIPID PANEL cholesterol 206 mg/dL <200 mg/dl Deepti able 200-2 39 mg/dl Borde rline High >240 mg/dl High Not Available [address], [address], 07/16/2021 15:01:56 07/16/20 21 07/16/2021 LIPID PANEL triglyceride s 74 mg/dL <150 mg/dL Winter l 150-1 99 mg/dL Borde rline High 200-4 99 mg/dL High >500 mg/dL Very High Not Available [address], [address], 07/16/2021 15:01:56 07/16/20 21 07/16/2021 LIPID PANEL direct HDL 63 mg/dL <40 mg/dl - Major Risk for CHD >60 mg/dl - Negat alba Risk for CHD Not Available [address], [address], 07/16/2021 15:01:56 07/16/20 21 07/16/2021 GLUCO SE glucose 98 mg/dL 70-100 Not Available [address], [address], 07/16/2021 15:01:56 07/16/20 21 07/16/2021 LDL - [...] r is not preston waltony. Not Available [address], [address], 07/16/2021 15:01:57 07/25/20 22 07/25/2022 LIPID PANEL cholesterol 248 mg/dL <200 mg/dl Deepti able 200-2 39 mg/dl Borde rline High >240 mg/dl High Not Available [address], [address], 07/25/2022 12:10:30 07/25/20 22 07/25/2022 LIPID PANEL triglyceride s 126 mg/dL <150 mg/dL Winter l 150-1 99 mg/dL Borde rline High 200-4 99 mg/dL High >500 mg/dL Very High Not Available [address], [address], 07/25/2022 12:10:30 07/25/20 22 07/25/2022 LIPID PANEL direct HDL 66 mg/dL <40 mg/dl - Major Risk for CHD >60 mg/dl - Negat alba Risk for CHD Not Available [address], [address], 07/25/2022 12:10:30 07/25/20 22 07/25/2022 GLUCO SE glucose 94 mg/dL 70-100 Not Available [address], [address], 07/25/2022 12:10:31 07/25/20 22 07/25/2022 LDL - [...] r is not preston shabana. Not Available [address], [address], 07/25/2022 12:10:33 03/02/20 24 03/02/2024 LIPID PANEL cholesterol 208 mg/dL <200 mg/dl Deepti able 200-2 39 mg/dl Borde rline High >240 mg/dl High Not Available [address], [address], 03/02/2024 12:32:31 03/02/20 24 03/02/2024 LIPID PANEL triglyceride s 89 mg/dL <150 mg/dL Winter l 150-1 99 mg/dL Borde rline High 200-4 99 mg/dL High >500 mg/dL Very High Not Available [address], [address], 03/02/2024 12:32:31 03/02/20 24 03/02/2024 LIPID PANEL direct HDL 65 mg/dL <40 mg/dl - Major Risk for CHD >60 mg/dl - Negat alba Risk for CHD Not Available [address], [address], 03/02/2024 12:32:31 03/02/20 24 03/02/2024 GLUCO SE glucose 91 mg/dL 70-100 Not Available [address], [address], 03/02/2024 12:32:32 03/02/20 24 03/02/2024 LDL - CALCU LATED LDL - calculated 125.2 RISK CATEG ORY LDL GOAL _ CHD or CHD Risk Equiv alent s <100 mg/dl (10-y ear risk >20%) 2+ Risk Facto rs <130 mg/dl (10-y ear risk <= 20%) 0-1 Risk Facto r <160 mg[facility] with 0-1 risk facto r have a 10 year risk <10%, thus 10 year risk asses ment in peopl e with 0-1 risk facto r is not preston donald. Not Available [address], [address], 03/02/2024 12:32:33 03/07/20 25 03/08/2025 LIPID PANEL cholesterol 191 mg/dL <200 mg/dl Deepti able 200-2 39 mg/dl Borde rline High >240 mg/dl High Not Available [address], [address], 03/08/2025 16:26:13 03/07/20 25 03/08/2025 LIPID PANEL triglyceride s 57 mg/dL <150 mg/dL Winter l 150-1 99 mg/dL Borde rline High 200-4 99 mg/dL High >500 mg/dL Very High Not Available [address], [address], 03/08/2025 16:26:13 03/07/20 25 03/08/2025 LIPID PANEL direct HDL 65 mg/dL <40 mg/dl - Major Risk for CHD >60 mg/dl - Negat alba Risk for CHD Not Available [address], [address], 03/08/2025 16:26:13 03/07/20 25 03/08/2025 GLUCO SE glucose 103 mg/dL 70-100 high Not Available [address], [address], 03/08/2025 16:26:14 03/07/20 25 03/08/2025 LDL - [...] r is not preston donald. Not Available [address], [address], 03/08/2025 16:26:15 03/15/20 25 03/15/2025 CBC WBC 11.33 K/ L 4.23-9 .07 high Not Available [address], [address], 03/15/2025 10:58:30 03/15/20 25 03/15/2025 CBC RBC 5.23 M/ L 4.63-6 .08 Not Available [address], [address], 03/15/2025 10:58:30 03/15/20 25 03/15/2025 CBC HGB 15.9 g/dL 13.7-1 7.5 Not Available [address], [address], 03/15/2025 10:58:30 03/15/20 25 03/15/2025 CBC HCT 47.5 % 40.1-5 1.0 Not Available [address], [address], 03/15/2025 10:58:30 03/15/20 25 03/15/2025 CBC MCV 90.8 fL 79.0-9 2.2 Not Available [address], [address], 03/15/2025 10:58:30 03/15/20 25 03/15/2025 CBC MCH 30.4 pg 25.7-3 2.2 Not Available [address], [address], 03/15/2025 10:58:30 03/15/20 25 03/15/2025 CBC MCHC 33.5 g/dL 32.3-3 6.5 Not Available [address], [address], 03/15/2025 10:58:30 03/15/20 25 03/15/2025 CBC plt 231 K/ L 163-33 7 Not Available [address], [address], 03/15/2025 10:58:30 03/15/20 25 03/15/2025 CBC MPV 10.4 fL 9.4-12 .4 Not Available [address], [address], 03/15/2025 10:58:30 03/15/20 25 03/15/2025 CBC neut% 38.2 % 34.0-6 7.9 Not Available [address], [address], 03/15/2025 10:58:30 03/15/20 25 03/15/2025 CBC neut# 4.33 1.78-5 .38 Not Available [address], [address], 03/15/2025 10:58:30 03/15/20 25 03/15/2025 CBC lymph % 53.0 % 21.8-5 3.1 Not Available [address], [address], 03/15/2025 10:58:30 03/15/20 25 03/15/2025 CBC lymph # 6.01 K/ L 1.32-3 .57 high SREV= Slide revie wed by [facility]. Not Available [address], [address], 03/15/2025 10:58:30 03/15/20 25 03/15/2025 CBC mono% 6.4 % 5.3-12 .2 Not Available [address], [address], 03/15/2025 10:58:30 03/15/20 25 03/15/2025 CBC mono# 0.72 0.30-0 .82 Not Available [address], [address], 03/15/2025 10:58:30 03/15/20 25 03/15/2025 CBC eo% 1.3 % 0.8-7. 0 Not Available [address], [address], 03/15/2025 10:58:30 03/15/20 25 03/15/2025 CBC eo# 0.15 0.04-0 .54 Not Available [address], [address], 03/15/2025 10:58:30 03/15/20 25 03/15/2025 CBC baso% 0.8 % 0.2-1. 2 Not Available [address], [address], 03/15/2025 10:58:30 03/15/20 25 03/15/2025 CBC baso# 0.09 0.00-0 .08 high Not Available [address], [address], 03/15/2025 10:58:30 03/15/20 25 03/15/2025 CBC RDW-CV 12.3 % 11.6-1 4.4 Not Available [address], [address], 03/15/2025 10:58:30 03/15/20 25 03/15/2025 CBC Ig% 0.300 % 0.000- 1.500 Ig % >0.5 Indic ates possi ble Left Shift Not Available [address], [address], 03/15/2025 10:58:30 03/15/20 25 03/15/2025 CBC Ig# 0.030 0.000- 0.093 Not Available [address], [address], 03/15/2025 10:58:30 03/15/20 25 03/15/2025 CBC NRBC% 0.0 % 0.0-0. 2 Not Available [address], [address], 03/15/2025 10:58:30 03/15/20 25 03/15/2025 CBC NRBC# 0.000 0.000- 0.012 Not Available [address], [address], 03/15/2025 10:58:30 03/15/20 25 03/15/2025 PSA PSA 0.87 NG/mL 0.00-4 .00 Not Available [address], [address], 03/15/2025 12:20:17 03/16/20 25 03/15/2025 US, lower [...] mm. Readeusebio kennedy Physic monie: Marcell Soto [facility] (Imaging) [address], [place], [address], 03/16/2025 14:22:01 Result Notes None recorded. Problems Name Problem SNOMED Code Status Onset Date Resolution Date Notes Provider Name and Address Organization Details Recorded Time Hemangio ma of skin and subcutan eous tissue 747843495 Completed 10/11/2013 Tacho Knox MD [address] [place] [address], [phone] , [facility] 3 11:53:35 Nonvenom ous insect bite of multiple sites with infectio n 952464629 Completed 200309/15/2013 Not Available [facility] 3 02:04:12 Hemorrha ge of rectum and anus 582856778 Completed 200309/15/2013 Not Available [facility] 3 02:03:17 Mixed hyperlip idemia 793787532 Active 2004 Not Available [facility] 0 02:38:22 Internal hemorrho ids 82532590 Completed 200409/15/2013 Not Available [facility] 3 02:03:13 Finding by method 019156004 Completed 200409/15/2013 Not Available [facility] 3 02:01:56 Breathin g painful 92917864 Completed 200409/15/2013 Not Available [facility] 3 02:02:56 Neoplasm of uncertai n behavior of skin 11651374 Completed 200409/15/2013 Not Available [facility] 3 02:01:52 Pure hypercho lesterol emia 518604460 Completed 200610/11/2013 Tacho Knox MD [address] [place] [address], [phone] , [facility] 3 11:53:35 Dyspnea 914406385 Completed 200709/15/2013 Not Available [facility] 3 02:02:46 Hyperlip idemia 78655590 Completed 200710/11/2013 Tacho Knox MD [address] [place] [address], [address] , [facility] 3 11:53:35 Active 2019 son 2018 from overdose Tacho Knox MD [address] [place] [address], [phone] , [facility] 0 14:51:01 Adenomat ous polyp of colon 452189497 Active 2021 Tacho Knox MD [address] [place] [address], [address] , [facility] 2 08:38:16 Onychomy cosis of toenails 672843015 Active 2021 Tacho Knox MD [address] [place] [address], [address] , [facility] 2 08:38:19 Advance care planning Active 2021 see note today Tacho Knox MD [address] [place] [address], [address] , [facility] 2 08:42:22 Problem Notes None recorded. Procedures Surgical History Date Name Laterality Status Provider Name and Address Organization Details Recorded Time 03/14/20 25 Medicare Wellness Visit completed Agueda King MA [facility] 03/11/2025 14:44:56 03/10/20 24 Medicare Wellness Visit completed Lalita Moore MA [facility] 03/10/2024 09:10:51 08/02/20 22 Medicare Wellness Visit completed Jennifer Lorenz MA [facility] 08/02/2022 07:46:35 08/02/20 22 Alcohol use screening completed Jennifer Lorenz MA [facility] 08/02/2022 07:46:35 08/02/20 22 Cardiovascular disease risk reduction counseling completed Jennifer Lorenz MA [facility] 08/02/2022 07:46:35 08/02/20 22 Advanced Care Planning completed Tacho Knox MD [address] [place] [address], [phone], [facility] 08/02/2022 08:40:37 07/20/20 21 Medicare Wellness Visit completed Geovanna Alexander MA [facility] 07/20/2021 13:34:32 07/20/20 21 Alcohol use screening completed Geovanna Alexander MA [facility] 07/20/2021 13:34:32 07/11/20 20 Medicare Wellness Visit completed Geovanna Alexander MA [facility] 07/11/2020 14:03:12 07/11/20 20 prevention-cardiov ascular risk reduction counseling completed Geovanna Alexander MA [facility] 07/11/2020 14:03:12 07/11/20 20 prevention-annual alcohol misuse screening completed Geovanna Alexander MA [facility] 07/11/2020 14:03:12 03/11/20 19 Medicare Wellness Visit completed Geovanna Alexander MA [facility] 03/11/2019 07:47:21 08/14/20 17 Medicare Wellness Visit completed Geovanna Alexander MA [facility] 08/14/2017 13:55:03 08/05/20 16 Medicare Wellness Visit completed Elle Garcia LPN [facility] 08/05/2016 09:29:12 05/05/20 15 Medicare Wellness Visit completed Geovanna Alexander MA [facility] 05/05/2015 09:14:58 08/03/20 10 Excision completed Tacho Knox MD [address] [place] [address], [phone] 08/03/2010 14:52:04 Imaging Results None recorded. Procedure [...] in Arterial blood by Pulse oximetry Systolic And Diastolic Provider Name and Address Organization Details Last Updated DateTime 4 16172.5 3 g 25.5 kg/m2 168.91 cm 52 /min 12 /min 99 % 99 % 110/70 mm[Hg] Lalita Moore [facility] 4 09:17:27 Date Recorded Oxygen saturation Oxygen saturation in Arterial blood by Pulse oximetry Heart rate Body weight Body mass index (BMI) Body height Systolic And Diastolic Provider Name and Address Organization Details Last Updated DateTime 5 98 % 98 % 54 /min 83363.7 g 25 kg/m2 168.91 cm 116/60 mm[Hg] Agueda King MA [facility] 5 09:52:40 Date Recorded Body weight Provider Name an d Address Organization Details Last Updated DateTime 07/11/2020 91836.63 g Geovanna fuentes MA [facility] 07/11/2020 14:03:50 Date Recorded Body height Body mass index (BMI) Body weight Systolic And Diastolic Provider Name and Address Organization Details Last Updated DateTime 07/20/2021 168.91 cm 2.5 kg/m2 7076.04 g 110/64 mm[Hg] Geovanna Alexander MA [facility] 07/20/2021 13:48:53 Date Recorded Body height Body mass index (BMI) Body weight Heart rate Systolic And Diastolic Provider Name and Address Organization Details Last Updated DateTime 08/02/2022 168.91 cm 25.8 kg/m2 05216.96 g 60 /min 118/68 mm[Hg] Jennifer Lorenz MA [facility] 08/02/2022 07:52:26 Social History Question Answer Notes LastModified by Organizat ion Details LastModified Time Tobacco Smoking Status Former [facility]oker [facility] 09:22:23 Do You Wear A Helmet When Biking? Yes Rarely Bikes Information not available 05/05/2015 What Is Your Level Of Caffeine Consumption? Moderate 2 Cups Per Day Information not available 08/05/2016 How Much Tobacco [...] Or The Highest Degree You Have Received? [id number] Information not available 07/20/2021 How Many Days [...] Of Your Most Recent Tobacco Screening? 03/10/2024 [email or web address] Information not available 03/10/2024 How Many Children Do You Have? 1 Son Committed Suicide -Has Grown Daughter Information not available 07/16/2011 Are There Any Occupational Health Risks Where You Work? None Information not available 08/05/2016 What Is Your Current Pack Years? 10packyears [email or web address] Information not available 03/10/2024 What Is Your [...] How Much Tobacco Do You Smoke? No [email or web address] Information not available 03/10/2024 What Types Of [...] Tdap 0 completed Not Available [facility] 11/13/2019 02:34:55 Pneumococcal conjugate PCV 13 6 completed Not Available [facility] 11/13/2019 02:21:06 zoster live 6 completed Not Available [facility] 11/13/2019 02:31:10 pneumococcal polysaccharide PPV23 9 completed Not Available [facility] 11/13/2019 02:24:00 Td (adult), 2 Lf tetanus toxoid, preservative free, adsorbed 1 completed [facility]/2021 14:18:22 COVID-19, mRNA, LNP-S, PF, 100 mcg/0.5mL dose or 50 mcg/0.25mL dose 1 completed [facility]/2021 13:38:41 COVID-19, mRNA, LNP-S, PF, 100 mcg/0.5mL dose or 50 mcg/0.25mL dose 1 completed Geovanna Alexander MA [facility] 07/20/2021 13:38:49 Past Encounters Encounter ID Performer Location Encounter Start Date Encounter Closed Date Diagnosis/Indication Diagnosis SNOMED-CT Code Diagnosis ICD10 Code Diagnosis Note [id number] Tacho Knox MD , [facility], [address] [place] [address] 02/15/2002 10:00:00 11/16/2008 02:02:29 [id number] MD AUBRIE Vazquez, [facility], [address] [place] [address] 04/20/2004 13:13:38 04/20/2004 17:51:21 [id number] Aiyana Colón NP , [facility], [address] [place] [address] 10/25/2004 08:35:09 10/25/2004 17:07:01 [id number] [facility] - [address] [place] [address] 10/30/2004 14:15:56 10/30/2004 14:18:23 [id number] MD AUBRIE Sellers, [facility], [address] [place] [address] 03/20/2005 07:52:06 03/20/2005 12:37:17 [id number] [facility] - [facility] [address] [place] [address] 03/20/2005 08:39:49 03/20/2005 08:40:07 [id number] Tacho Knox MD , [facility], [address] [place] [address] 09/03/2005 16:10:35 11/16/2008 02:02:29 [id number] [facility] , [facility] [address] [place] [address] 09/03/2005 16:34:22 11/16/2008 02:02:29 [id number] [facility] , [facility] [address] [place] [address] 09/03/2005 00:00:00 11/16/2008 02:02:29 [id number] Tacho Knox MD , [facility], [address] [place] [address] 11/24/2006 08:58:05 11/24/2006 11:20:56 [id number] [facility] - [address] [address] 11/24/2006 09:28:54 11/24/2006 09:29:01 [id number] [facility] - [address] [address] 01/06/2008 10:16:56 01/06/2008 10:17:03 [id number] MD AUBRIE Sellers, [facility], [address] [place] [address] 01/06/2008 09:09:00 11/16/2008 02:02:29 [id number] Amanda Simpson NP , [facility], [address] [place] [address] 12/13/2008 07:16:33 12/14/2008 12:30:15 [id number] SAMUEL Smyth, [facility], [address] [place] [address] 11/07/2009 08:12:57 11/07/2009 11:21:53 [id number] MD AUBRIE Sellers, [facility], [address] [place] [address] 08/03/2010 13:58:53 08/06/2010 12:50:06 [id number] MD AUBRIE Sellers, [facility], [address] [place] [address] 07/16/2011 08:45:41 07/16/2011 09:51:07 [id number] MD AUBRIE Sellers, [facility], [address] [place] [address] 04/20/2012 15:58:40 04/20/2012 16:22:11 [id number] MD AUBRIE Sellers, [facility], [address] [place] [address] 10/09/2012 07:59:53 10/09/2012 08:48:18 [id number] MD AUBRIE Sellers, [facility], [address] [place] [address] 10/11/2013 08:57:33 10/11/2013 13:19:35 Adult health examination 966773555 see Risk Assessment and Lifestyle Change Counseling section above Counseling [id number] Mixed hyperlipidemia 833495524 [id number] MD AUBRIE Sellers, [facility], [address] [place] [address] 05/05/2015 08:46:30 05/05/2015 09:58:15 Adult health examination 881986821 see Risk Assessment and Lifestyle Change Counseling section above Counseling [id number] MD AUBRIE Sellers, [facility], [address] [place] [address] 08/05/2016 09:14:15 08/05/2016 10:07:54 Adult health examination 946499190 Z00.00 see Risk Assessment and Lifestyle Change Counseling section above Counseling 191400523 Z71 .9 Active or passive immunization 453819647 Z23 [id number] Tacho Knox MD , [facility], [address] [place] [address] 02/28/2017 08:25:08 02/28/2017 08:53:48 Mediastinal lymphadenopathy 64188732 R59.0 [id number] Tacho Knox MD , [facility], [address] [place] [address] 08/14/2017 13:23:20 08/14/2017 14:44:35 Adult health examination 601679967 Z00.00 see Risk Assessment and Lifestyle Change Counseling section above Counseling 430788917 Z71 .9 Mediastina l lymphadenopathy 76026583 R59.0 [id number] Tacho Knox MD , [facility], [address] [place] [address] 03/11/2019 07:33:13 03/12/2019 09:35:31 Adult health examination 577284837 Z00.00 see Risk Assessment and Lifestyle Change Counseling section above Counseling 108487910 Z71 .9 Depression screening 171 487068 Z13.89 depression screening tool administer ed, entered into emr, scored and discussed, time greater than 7.5 minutes Atypical chest pain 1025 [address] R07.89 Active or passive immunization 688155285 Z23 [id number] Tacho Knox MD , [facility], [address] [place] [address] 07/11/2020 13:58:45 07/13/2020 09:45:30 Adult health examination 878785615 Z00.00 see Risk Assessment and Lifestyle Change Counseling section above Counseling [id number] Z71 .9 including cardiovasc ular risk reduction counseling Screening for alcohol abuse 107508482 Z13.39 Mixed hyperlipidemia 267 711834 E78.2 Chronic constipation 236 944149 K59.09 Adenomatou s polyp of colon 172070860 D12.6 [id number] Tacho Knox MD , [facility], [address] [place] [address] 07/20/2021 13:33:24 07/20/2021 14:17:54 Adult health examination [id number] Z00.00 see Risk Assessment and Lifestyle Change Counseling section above Counseling 141249744 Z71 .9 including cardiovasc ular risk reduction counseling Depression screening 171 Z13.31 depression screening tool administer ed, entered into emr, scored and discussed, time greater than 7.5 minutes Screening for alcohol abuse 775317899 Z13.39 Hemorrhoids 53811243 K64 .9 Active or passive immunization 815758351 Z23 Adenomatou s polyp of colon 238403845 D12.6 [id number] Tacho Knox MD , [facility], [address] [place] [address] 08/02/2022 07:30:13 08/02/2022 08:29:16 Adult health examination 686413932 Z00.00 see Risk Assessment and Lifestyle Change Counseling section above Counseling 552396744 Z71 .9 including cardiovas ular risk reduction counseling Depression screening 171 Z13.31 depression screening tool administer ed, entered into emr, scored and discussed, time greater than 7.5 minutes Screening for alcohol abuse 496788120 Z13.39 Mixed hyperlipidemia 267 849482 E78.2 Adenomatou s polyp of colon 279635839 D12.6 Onychomyco sis of toenails 210494128 B35.1 Advance care planning 71 9024373 Z71.89 [id number] SANKET GILL DO , [facility], [address] [place] [address] 03/10/2024 08:58:22 03/11/2024 10:51:44 Adult health examination 288030282 Z00.00 The importance of a healthy well [...] tool administer ed Screening for alcohol abuse 812050023 Z13.39 Alcohol use screening tool administer ed Abdominal aortic aneurysm screening 805319308 Z13.6 Declines testing/sc reening. Screening for malignant neoplasm of prostate 374292795 Z12.5 Declines testing for PSA. [id number] DO AUBRIE ROMERO, [facility], [address] [place] [address] 03/14/2025 09:08:38 03/14/2025 10:25:45 Adult health examination 423076966 Z00.00 The importance of a healthy well [...] home safety were discussed Depression screening 171 570328 Z13.31 depression screening tool administer ed Screening for alcohol abuse 942677384 Z13.39 Alcohol use screening tool administer ed Mixed hyperlipidemia 267 247495 E78.2 Check lipids, advised to follow a heart healthy diet and; increase exercise. Screening for malignant neoplasm of prostate 218347077 Z12.5 agreeable to testing for PSA. Groin mass 992056164 R19 .09 Concern for R inguinal hernia. [...] 2 [employer] (MEDICARE SUPPLEMENT) Gemini Jacobson Jr [id number] Gemini Jacobson Jr 04/10/2025 1 MEDICARE B-[place]: NATIONAL [employer]ERNMENT SERVICES Gemini España Jr [id number] Gemini Jacobson Jr 04/13/2025 2 [employer] - PLAN HF (MEDICARE SUPPLEMENT) Gemini España [id number] Gemini Jacobson Jr 04/10/2025 1 [facility]LY [facility] (O) [id number] Gemini Jacobson [id number] Gemini Jacobson Jr 04/10/2025 1 [employer]: BLUE CHOICE (POS) [id number] Gemini España Jr [id number] Gemini Jacobson Jr 04/10/2025 1 [facility] (PPO) [id number] Gemini Jacobson Jr [id number] Gemini Jacobson Jr 11/07/2009 1 *SELF PAY* Jose D Jacobson Jr 04/10/2025 1 MEDICARE B-[place]: [facility] Gemini España Jr [id number] Gemini Jacobson Jr 04/10/2025 2 [facility] (PPO) [id number] Gemini Jacobson [id number] Gemini Jacobson Jr
== END 2025-05-23 15:41 | disposition home or self-care (01) ==
LOC: HO.HGS 15:08
DX: Z98.890 Other specified postprocedural states (principal); Z87.19 Personal history of other diseases of the digestive system
CPT/HCPCS: 99024

== ENCOUNTER → 2025-05-23 15:08 | Outpatient (BNVA) | payer MEDICARE, OTHER, SELFPAY | DX: Z48.815 Encounter for surgical aftercare following surgery on the digestive system (principal); Z98.890 Other specified postprocedural states; Z87.19 Personal history of other diseases of the digestive system | CPT/HCPCS: 99212 ==

== ENCOUNTER 2025-06-06 13:28 | Outpatient (AMB) | payer MEDICARE, OTHER, SELFPAY ==
--- OUTSIDE RECORDS SUMMARY | 2025-06-06 13:39 | XMS_ITS | Encounter Summary ---
Author Organization [facility] Address [address] [place], [place] [address] Phone Care Team Providers Care Cyber Systems Administrator Name Role Phone Tacho Knox MD Primary Care Provider [phone] Encounter Details Date Type Department Care Team (Late st Contact Info) Description 06/30/2020 Procedure Pass [facility] Endoscopy Admitting Dept Virtual Department [address] [place] [address] Social History Tobacco Use Types Packs/Day Years [...] Pass [facility] Endoscopy Admitting Dept Virtual Department [address] [place] [address] 07/21/2025 9:00 AM EDT Hospital Encounter [facility] Admitting Dept Virtual Department [address] [place] [address] Pedrito Montero MD [address] [place] [address] 07/21/2025 9:00 AM EDT - 07/21/2025 9:30 AM EDT Surgery [facility] Endoscopy Admitting Dept Virtual Department [address] [place] [address] Pedrito Montero MD [address] [place] [address] [email or web address] COLONOSCOPY Scheduled Procedures Name Priority Associated Diagnoses Date/Ti me COLONOSCOPY Personal history of colon polyps, unspecified 07/21/2025 9:00 AM EDT ESOPHAGOGASTRODUODENOSCOPY Personal history of colon polyps, unspecified 07/21/2025 9:00 AM EDT documented as of this encounter Visit Diagnoses Not on filedocumented in this encounter Care Teams Cyber Systems Administrator Relationship Specialty Start Date End Date Tacho Knox MD [email or web address] PCP - General Family Medicine 06/21/20 documented as of this encounter Additional Source Comments The information contained in this document represents components of the legal health record. It is not the complete legal health record.[facility]
--- NOTE | 2025-06-06 13:41 | MHC.OFFVIS ---
Vital Signs 06/06/25 13:50 Height 5 ft 4 in Weight 157 lb BMI 26.9 BP 112/63 Blood Pressure Location Lt brachial Position Sitting Pulse 60 Pulse Oximetry (%) 98 Oxygen Delivery Method Room Air Intake Visit Reasons: s/p RIH w/mesh Intake Note: Patient follow up for Patient follow up for s/p RIH w/mesh Patient cc: right testicular discomfort with swelling and some redness. Corn Husk Baler Required: No Accompanied by: Self / Same As Patient Allergies No Known Allergies Allergy (Verified 06/06/25 13:41) HPI HPI s/p RIH w/mesh: Details: Overall doing well, pain improved, bruising improved. He states that his scrotal swelling has improved but there was still some residual. Still believes his right testicle is running higher. [facility] Medical History (Updated 05/20/25 @ 14:06 by MYCHAL Mcnair) Reducible right inguinal hernia (05/10/25) Mixed hyperlipidemia Reducible right inguinal hernia Surgical History Hx of left inguinal hernia repair Social History Patient Tobacco Use Status: Former Tobacco user Review of Systems Const All systems reviewed & are unremarkable except as noted in HPI and below Physical Exam Vital Signs: Last Vital Signs Pulse 60 06/06/25 13:50 BP 112/63 06/06/25 13:50 Pulse Ox 98 06/06/25 13:50 Oxygen Delivery Method Room Air 06/06/25 13:50 BMI result Body Mass Index 26.9 Const General: comfortable and no acute distress Orientation/consciousness: patient oriented x3 Resp Effort & Inspection: normal respiratory effort and able to speak in complete sentences GI Other: Right inguinal hernia repair site intact. Healing well, no surrounding erythema, nontender. No recurrence on Valsalva Inspection: No distended Palpation (GI): Soft to palpation and nontender Other: Right scrotal edema, right testicle slightly elevated Neuro General: patient oriented x3 Assessment & Plan Assessment & Plan (1) S/P inguinal hernia repair: Comment: Right Code(s): Z98.890 - Other specified postprocedural states; Z87.19 - Personal history of other diseases of the digestive system Category: Surgical Plan 75-year-old male s/p right inguinal hernia repair with mesh on 05/10/2025 returning to the office for routine one-month follow up. Overall patient is doing well. He reports that the bruising and swelling is improving in the right testicle, still concern for the elevation of his right testicle. He denies current pain. Appetite and bowel function are at baseline. He denies nausea or vomiting. On exam his abdomen is soft and benign incision site appears to be healing well there was no concern for infection at this time. There was a mild amount of scrotal swelling, I was able to palpate both testicles in the scrotum, the right is slightly elevated but is still in the scrotal sac. Asked my attending physician Dr. Ch to evaluate this as well. He reassured the patient that this is a normal finding at this stage of postoperative recovery and that this will decrease over time, he informed the patient that due to the nature of the procedure, including manipulation of the spermatic cord, can result in a high-riding testicle them previously, but this should not cause him any lasting issues. Reassured him swelling should go down with time. We will continue with activity restrictions no heavy lifting greater than 15-20 lb for the next 2 weeks. Patient will return in 1 month follow-up to evaluate scrotal swelling and testicular elevation he can return sooner with any concerns prior Coding Level of Care Code Global (63783) Diagnoses S/P inguinal hernia repair Z98.890; Z87.19
[2025-06-06 13:50] VITALS: BP 112/63; PULSE 60; O2SAT 98; BMI 26.9
== END 2025-06-06 14:07 | disposition home or self-care (01) ==
LOC: HO.HGS 13:28
DX: Z98.890 Other specified postprocedural states (principal); Z87.19 Personal history of other diseases of the digestive system
CPT/HCPCS: 99024

== ENCOUNTER → 2025-06-06 13:28 | Outpatient (BNVA) | payer MEDICARE, OTHER, SELFPAY | DX: Z48.815 Encounter for surgical aftercare following surgery on the digestive system (principal); Z87.19 Personal history of other diseases of the digestive system; Z98.890 Other specified postprocedural states | CPT/HCPCS: 99212 ==

== ENCOUNTER 2025-07-07 09:47 | Outpatient (AMB) | payer MEDICARE, OTHER, SELFPAY ==
--- NOTE | 2025-07-07 09:56 | A.OFFVIS_ITS ---
Vital Signs 07/07/25 10:11 Height 5 ft 4 in Weight 159 lb BMI 27.3 BP 107/59 L Blood Pressure Location Lt brachial Position Sitting Pulse 66 Intake Visit Reasons: 1mth s/p RIH w/mesh Intake Note: Patient is seen in office for one month follow up visit, post right inguinal hernia repair. Pt c/o: admits to right testicle is elevated, swelling has decrease since last visit Stud Sheep Farmer Required: No Accompanied by: Self / Same As Patient Allergies No Known Allergies Allergy (Verified 07/07/25 10:11) HPI HPI 1mth s/p RIH w/mesh: Details: Patient states he is doing well. Scrotal swelling has resolved, alongside that he feels that the right testicle has descended more. He denies any urologic complaints. Denies pain at the incision site. He is getting back to activity, walking a lot now incorporating jumping jacks. PFSH Medical History Reducible right inguinal hernia (05/10/25) Mixed hyperlipidemia Reducible right inguinal hernia Surgical History Hx of left inguinal hernia repair Social History Patient Tobacco Use Status: Former Tobacco user Review of Systems Const All systems reviewed & are unremarkable except as noted in HPI and below Physical Exam Vital Signs: Last Vital Signs Pulse 66 07/07/25 10:11 BP 107/59 L 07/07/25 10:11 BMI result Body Mass Index 27.3 Const General: comfortable and no acute distress Orientation/consciousness: patient oriented x3 GI Other: Right inguinal hernia repair incision site, intact nontender. No recurrence of hernia with Valsalva Inspection: Yes normal to inspection and No distended Palpation (GI): Soft to palpation and nontender Scrotum: scrotum normal and no scrotal swelling Neuro General: patient oriented x3 Assessment & Plan Assessment & Plan (1) S/P inguinal hernia repair: Comment: Right Code(s): Z98.890 - Other specified postprocedural states; Z87.19 - Personal history of other diseases of the digestive system Category: Medical Plan 75-year-old male s/p right inguinal hernia repair with mesh on 05/10/2025 returning to the office for follow-up due to scrotal swelling. Overall patient now doing much better. Scrotal swelling has resolved at this point. Patient also feels that the testicle has descended to its appropriate place since the swelling has decreased. Additionally he has not experiencing any urologic complaints. He is not have any pain. He is returning to activity which he is tolerating well at this point he is no longer requiring activity restrictions he can resume activity as tolerated. On exam incision site is intact, well healed. There was no evidence of recurrence on Valsalva. Patient no longer requiring follow up, instructed him that he can return as needed with any concerns Coding Level of Care Code Global (13729) Diagnoses S/P inguinal hernia repair Z98.890; Z87.19
[2025-07-07 10:11] VITALS: BP 107/59; PULSE 66; BMI 27.3
--- OUTSIDE RECORDS SUMMARY | 2025-07-07 11:36 | XMS_ITS | Encounter Summary ---
Author Organization [facility] Address [address] [place], [place] [address] Phone Care Team Providers Care Entertainment Manager Name Role Phone Tacho Knox MD Primary Care Provider [phone] Encounter Details Date Type Department Care Team (Late st Contact Info) Description 06/30/2020 Procedure Pass [facility] Endoscopy Admitting Dept Virtual Department [address] [place] [address] Social History Tobacco Use Types Packs/Day Years [...] Pass [facility] Endoscopy Admitting Dept Virtual Department [address] [place] [address] 07/21/2025 9:00 AM EDT Hospital Encounter [facility] Admitting Dept Virtual Department [address] [place] [address] Pedrito Montero MD [address] [place] [address] 07/21/2025 9:00 AM EDT - 07/21/2025 9:30 AM EDT Surgery [facility] Endoscopy Admitting Dept Virtual Department [address] [place] [address] Pedrito Montero MD [address] [place] [address] [email or web address] COLONOSCOPY Scheduled Procedures Name Priority Associated Diagnoses Date/Ti me COLONOSCOPY Personal history of colon polyps, unspecified 07/21/2025 9:00 AM EDT documented as of this encounter Visit Diagnoses Not on filedocumented in this encounter Care Teams Entertainment Manager Relationship Specialty Start Date End Date Tacho Knox MD [email or web address] PCP - General Family Medicine 06/21/20 documented as of this encounter Additional Source Comments The information contained in this document represents components of the legal health record. It is not the complete legal health record.[facility]
--- OUTSIDE RECORDS SUMMARY | 2025-07-07 11:36 | XMS_ITS | Clinical Summary ---
Author Organization [facility] Address [address] [address] Phone Care Team Providers Care Printed Circuit Board Designer Name Role Phone Tacho Knox MD Primary Care Provider [phone] Allergies No known active allergies Medications No known medications Social History Tobacco Use Types Packs/Day Years Used Date Smoking Tobacco: Former Smokeless Tobacco: Never Alcohol Use Standard Drinks/Week Comments Yes 12 (1 standard drink = 0.6 oz pu re alcohol) Education Answer Date Recorded Are you interested in more education? Not on tyrese e 02/21/2023 Are you concerned about learning? Not on file 02/21/2023 No 02/21/2023 No 02/21/2023 Digital Access Answer Date Recorded No 03/22/2023 No 03/22/2023 No 03/22/2023 Reliable internet access at home? Not on file 03/22/2023 Device with a working camera? Not on file Sex and Gender Information Value Date Recorded Sex Assigned at Not on file Legal Sex Male 10:03 PM EDT Gender Identity Not on file Sexual Orientation Not on file Last Filed Vital Signs Vital Sign Reading Time Taken Comments Blood Pressure 102/67 06/30/2020 8:45 AM EDT Pulse 58 06/30/2020 7:07 AM EDT Temperature 36 C (96.8 F) 06/30/2020 8:33 AM EDT Respiratory Rate 16 06/30/2020 7:07 AM EDT Oxygen Saturation 98% 06/30/2020 8:45 AM EDT Inhaled Oxygen Concentration - - Weight 69.4 kg (153 lb) 06/27/2020 11:55 AM EDT Height 168.9 cm (5' 6.5 ) 06/27/2020 11:55 AM ED T Body Mass Index 24.32 06/27/2020 11:55 AM EDT Plan of Treatment Upcoming Encounters Date Type Department Care Team (Late st Contact Info) Description 07/21/2025 Procedure Pass [facility] Endoscopy Admitting Dept Virtual Department [address] [place] [address] 07/21/2025 9:00 AM EDT Hospital Encounter [facility] Admitting Dept Virtual Department [address] [place] [address] Pedrito Mo MD [address] [address] 07/21/2025 9:00 AM EDT - 07/21/2025 9:30 AM EDT Surgery [facility] Endoscopy Admitting Dept Virtual Department [address] [place] [address] Pedrito Mo MD [address] [address] COLONOSCOPY Scheduled Procedures Name Priority Associated Diagnoses Date/Ti me COLONOSCOPY Personal history of colon polyps, unspecified 07/21/2025 9:00 AM EDT Health Maintenance Due Date Last Done Comments LIPID PANEL 1950 DEPRESSION SCREENING 1962 SMOKING Hx and SMOKELESS TOBACCO SCREENING 1963 HEPATITIS C SCREENING 01/28/1968 COLOGUARD 1995 FIT TEST 1995 FOBT 1995 SIGMOIDOSCOPY 1995 VIRTUAL COLONOSCOPY 1995 ZOSTER VACCINES (2 of 3) 09/30/2016 08/05/2016 RSV VACCINE (1 - 1-dose 75+ series) 2025 INFLUENZA VACCINE (#1) 2025 COVID-19 VACCINE (3 - 2024-2 6 season) 2025 06/15/2021, 05/17/2021 COLONOSCOPY 06/30/2030 06/30/2020 COLORECTAL CANCER SCREENING 06/30/2030 Adult Td,Tdap Booster 07/20/2031 07/20/2021 , 11/07/2009 PNEUMOCOCCAL VACCINES (50+ years) Completed 03/11/2019, 08/05/2016 HEPATITIS A VACCINES Aged Out No long er eligible based on patient's age to complete this topic HIB VACCINES Aged Out No longer eligi ble based on patient's age to complete this topic MENINGOCOCCAL VACCINES (ACWY) Aged Out No longer eligible based on patient's age to complete this topic MENINGOCOCCAL VACCINES (B) Aged Out N o longer eligible based on patient's age to complete this topic Medical Devices Not on file Procedures Procedure Name Priority Date/Time Associated Diagnosis Comments ENDOSCOPY, COLON 06/30/2020 8:05 AM EDT from Last 3 Months or Most Recently Relevant to Health Maintenance Results * ENDOSCOPY, COLON (06/30/2020 8:05 AM EDT) Narrative Transcriptions Pedrito Mo MD - 06/30/2020 8:05 AM EDT Patient Name: Mikey España Attending MD:: PEDRITO MO MD Procedure Date: 06/30/2020 8:05 AM Date of : 1950 Age: 70 Admit Type: Outpatient Gender: Male Room: [facility] Referring MD: TACHO KNOX MD Exam Type: Colonoscopy Indications: High risk colon cancer surveillance: Personalhistory of colonic polyps, Last colonoscopy: 2014 Medications: Monitored Anesthesia Care Procedure: Informed consent was obtained from the patient after discussion of the indications, limitations, alternatives, benefits, and risks of the procedure. Risks specifically discussed include but are not limited to medication reactions, missed lesions, bleeding, perforation, or the need for emergentsurgery. Throughout the procedure, the patient's bloodpressure, pulse, end-tidal CO2, and oxygen saturations were monitored continuously. The Olympus adult variable colonoscope CF-[id number] #2was introduced through the anus and advanced to the terminal ileum. The colonoscopy was performedwithout difficulty. The patient tolerated the procedurewell. The quality of the bowel preparation was good. Complications: No immediate complications. Estimated blood loss:None. Findings: The perianal and digital rectal examinations were normal. Two sessile polyps were found in the descendingcolon. The polyps were 2 to 6 mm in size. These polyps were removed with a cold snare. Resection and retrievalwere complete. To prevent bleeding post-intervention, two hemostatic clips were successfully placed. There wasno bleeding at the end of the procedure. Multiple small-mouthed diverticula were found in the sigmoid colon and descending colon. The rectum, recto-sigmoid colon, sigmoid colon,splenic flexure, transverse colon, hepatic flexure,ascending colon, cecum, appendiceal orifice, ileocecal valve, ileum, rectum (on retroflexion) and ascending colon(on retroflexion) appeared normal. A 3 mm polyp was found in the rectum. The polyp was sessile. The polyp was removed with a cold biopsy forceps. Resection and retrieval were complete. 2 plus internal hemorrhoids were noted. Impression: - Two 2 to 6 mm polyps in the descending colon,removed with a cold snare. Resected and retrieved. Clipswere placed. - Diverticulosis in the sigmoid colon and in the descending colon. - The rectum, recto-sigmoid colon, sigmoid colon, splenic flexure, transverse colon, hepatic flexure, ascending colon, cecum, appendiceal orifice,ileocecal valve and terminal ileum are normal. Recommendation: - Discharge patient to home. - High fiber diet. - Continue present medications. - Await pathology results. - Repeat colonoscopy in 5 years for surveillance. - I will send you pathology results by letter. Ifyou do not get results in 3 weeks telephone my office. PEDRITO MO MD 06/30/2020 8:30:59 AM This report has been signed electronically. Number of Addenda: 0 Note Initiated On: 06/30/2020 8:05 AM Procedure Code(s): --- Professional --- 34135, Colonoscopy, flexible; with removal of tumor(s), polyp(s), or other lesion(s) by snare technique --- Technical --- 32204, Colonoscopy, flexible; with removal of tumor(s), polyp(s), or other lesion(s) by snare technique Diagnosis Code(s): --- Professional --- Z86.010, Personal history of colonic polyps D12.4, Benign neoplasm of descending colon K57.30, Diverticulosis of large intestine without perforation or abscess without bleeding --- Technical --- Z86.010, Personal history of colonic polyps D12.4, Benign neoplasm of descending colon K57.30, Diverticulosis of large intestine without perforation or abscess without bleeding CPT copyright 2018 [employer]. All rights reserved. The codes documented in this report are preliminary and upon reset merchandiser reviewmay be revised to meet current compliance requirements. Procedure Date: 06/30/2020 8:05:06 AM [address] [place] [address] Tacho Knox MD GI PROCEDURE ORDERABLES Final Re sult from Last 3 Months or Most Recently Relevant to Health Maintenance Insurance MEDICARE PART A & B [facility] MEDICARE SUPPLEMENT MEDICARE PART A & B [facility] MEDICARE SUPPLEMENT MEDICARE PART A & B [facility] MEDICARE SUPPLEMENT MEDICARE PART A & B [employer] MEDICARE SUPPLEMENT MEDICARE PART A & B [employer] MEDICARE SUPPLEMENT MEDICARE PART A & B [employer] MEDICARE SUPPLEMENT MEDICARE PART A & B [employer] MEDICARE SUPPLEMENT MEDICARE PART A & B [employer] MEDICARE SUPPLEMENT MEDICARE PART A & B [employer]ICARE SUPPLEMENT Care Teams Printed Circuit Board Designer Relationship Specialty Start Date End Date Tacho Knox MD PCP - General Family Medicine 06/21/20 Additional Source Comments The information contained in this document represents components of the legal health record. It is not the complete legal health record.[facility]
== END 2025-07-07 10:09 | disposition home or self-care (01) ==
LOC: HO.HGS 09:47
DX: Z98.890 Other specified postprocedural states (principal); Z87.19 Personal history of other diseases of the digestive system
CPT/HCPCS: 99024

== ENCOUNTER → 2025-07-07 09:47 | Outpatient (BNVA) | payer MEDICARE, OTHER, SELFPAY | DX: Z98.890 Other specified postprocedural states (principal); Z87.19 Personal history of other diseases of the digestive system | CPT/HCPCS: 99212 ==

== ENCOUNTER 2025-07-13 14:29 | Outpatient (AMB) | payer MEDICARE, OTHER, SELFPAY ==
[2025-07-13 14:34] VITALS: BP 90/52; PULSE 73; RESP 18; TEMP 36.3; O2SAT 96; BMI 27.3
--- NOTE | 2025-07-13 14:34 | A.OFFPC_ITS ---
Vital Signs 07/13/25 14:34 Height 5 ft 4 in Weight 159 lb BMI 27.3 BP 90/52 L Blood Pressure Location Lt brachial Position Sitting Respiration 18 Pulse 73 Pulse Source Pulse Oximeter Temp 97.3 F Temp Source Temporal Artery Scan Pulse Oximetry (%) 96 Oxygen Delivery Method Room Air Intake Visit Reasons: establish care Engineering Supervisor Required: No Accompanied by: Self / Same As Patient Allergies No Known Allergies Allergy (Verified 07/13/25 15:00) Medication List - Last Reconciled 07/13/25 by SHANNAN Pritchard cholecalciferol (vitamin D3) (Vitamin D3) 25 mcg PO DAILY ibuprofen 600 mg PO Q6H PRN Tobacco use date assessed: 07/13/25 Fall risk assessment: No Falls in past year Last assessed Fall Risk: 07/13/25 Dental Screening Dental Screen Date: 07/13/25 Did you have a dental visit in the last 12 months?: Yes Did you have a dental problem in the last 6 months where you did not have access to dental care?: No Was dental information given to patient?: Patient has dentist HPI establish care HPI Details The patient is a 75-year-old male who was presenting to establish care Previous PCP: Dr. Luis Castellanos [place], [place] Last visit:March 14, 2025 Last PE: same Specialist: General surgery hernia repair May 10, 2025, OBGYN: n/a Past medical history: hld, right groin hernia repair with Dr. Ch Medications: Vitamin D3 25 mcg Family HX: Problem: colonoscopy on the july 21, 2025, [facility] Medical History (Updated 07/14/25 @ 22:58 by SHANNAN Pritchard) Adenomatous polyp of colon Onychomycosis Reducible right inguinal hernia (05/10/25) Mixed hyperlipidemia Reducible right inguinal hernia Surgical History Hx of left inguinal hernia repair Social History Household Members: Other Housing: Apartment Alcohol intake: current Alcohol intake frequency: 0-2 drinks per day Patient Tobacco Use Status: Former Tobacco user e-Cigarette/Vaping Use: Never Used Current occupational status: retired Cognitive needs: No Hearing needs: No Vision needs: Yes Questionnaire PHQ-9 Over the last 2 weeks, how often have you been bothered by any of the following problems? 1. Little interest or pleasure in doing things: not at all 2. Feeling down, depressed, or hopeless: not at all 3. Trouble falling or staying asleep, or sleeping too much: not at all 4. Feeling tired or having little energy: not at all 5. Poor appetite or overeating: not at all 6. Feeling bad about yourself - or that you are a failure or have let yourself or your family down: not at all 7. Trouble concentrating on things, such as reading the newspaper or watching television: not at all 8. Moving or speaking so slowly that other people could have noticed. Or the opposite - being so fidgety or restless that you have been moving around a lot more than usual: not at all 9. Thoughts that you would be better off or of hurting yourself in some way: not at all Total score: 0 Depression Screening Interpretation: Negative Depression Screening Done: Yes 65703 - PHQ-9 Billing: Yes Source: Developed by Drs. Charli Michel, Prema Ann, Michael Shetty and colleagues, with an educational carlitos from [employer]. Thrive Questionnaire Date Thrive assessed: 07/13/25 I am a: Patient What is your living situation today?: I have a steady place to live Within the past 12 months, did the food you bought not last and you didn't have the money to get more?: Never true Within the past 12 months, did you worry whether your food would run out before you got money to buy more?: Never true Do you have trouble paying for medicines?: No Do you have trouble getting transportation to medical appointments?: No Do you have trouble paying your heating and electricity bill?: No Do you have trouble taking care of your child, family member or friend?: No Do you have trouble with day-to-day activities such as bathing, preparing meals, shopping, managing finances, etc.?: No Are you currently unemployed and looking for a job?: No Are you interested in more education?: No Please select the resources that you would like help with: None Currently or been in a relationship where the following occur: No concerns reported THRIVE Score: 0 AUDIT C Alcohol Use Questionnaire (AUDIT-C) 1. How often do you have a drink containing alcohol?: 4 or more times a week 2. How many drinks containing alcohol do you have on a typical day when you are drinking?: 1 or 2 3. How often do you have six or more drinks on one occasion?: Never Total Score: 4 MARIA-7 AMB Questionnaire MARIA-7 Date MARIA - 7 assessed: 07/13/25 Feeling nervous, anxious, or on edge: 0 = Not at all Not being able to stop or control worryin = Not at all Worrying too much about different things: 0 = Not at all Trouble relaxin = Not at all Being so restless that it is hard to sit still: 0 = Not at all Becoming easily annoyed or irritable: 0 = Not at all Feeling afraid as if something awful might happen: 0 = Not at all Total MARIA-7 score (0-4 normal; 5-9 mild; 10-14 moderate; 15-21 severe): 0 Source: Developed by Drs. Charli Michel, Prema Ann, Michael Shetty and colleagues, with an educational carlitos from [employer]. MARIA-7 Assessment Billing MARIA-7 Assessment Tool: MARIA-7 Assessment 12451 Review of Systems Const Denies headache(s) Eyes Denies loss of vision ENT Denies vertigo, Denies dizziness, Denies headache(s) and Denies sore throat Card Denies chest pain, Denies leg edema and Denies lightheadedness Resp Denies cough, Denies hemoptysis and Denies wheezing GI Denies abdominal pain, Denies melena, Denies constipation, Denies diarrhea and Denies vomiting Denies dysuria, Denies urinary frequency and Denies urinary urgency Musc Denies arthralgias, Denies joint swelling, Denies numbness and Denies tingling Neuro Denies Abnormal speech present, Denies behavioral changes, Denies vertigo, Denies dizziness, Denies headache(s), Denies loss of vision, Denies memory loss, Denies numbness and Denies tingling Psych Denies anxiety, Denies behavioral changes, Denies depression, Denies memory loss and Denies panic attacks Bryce/Lymph Denies easy bleeding and Denies easy bruising Aller/Immun Denies wheezing Physical exam (Primary Care) Vital Signs: Last Vital Signs Temp 97.3 F 07/13/25 14:34 Pulse 73 07/13/25 14:34 Resp 18 07/13/25 14:34 BP 90/52 L 07/13/25 14:34 Pulse Ox 96 07/13/25 14:34 Oxygen Delivery Method Room Air 07/13/25 14:34 BMI result Body Mass Index 27.3 Tobacco/Smoking Status: Tobacco use Status Tobacco use date assessed 07/13/25 07/13/25 14:47 Patient Tobacco Use Status Former Tobacco user 07/13/25 14:47 e-Cigarette/Vaping Use Never Used 07/13/25 14:47 PHQ-9: PHQ-9 Score PHQ-9: Total score 0 07/13/25 15:07 Depression Screening Interpretation: Negative Thrive Assessment: Date of Thrive Assessment Date Thrive assessed 07/13/25 07/13/25 14:47 Currently or been in a relationship where the following occur: No concerns reported Const General: healthy appearing, no acute distress, alert and awake Nutritional Appearance: well nourished Orientation/consciousness: oriented to person, oriented to place and oriented to time HENMT Ears: TM's normal bilaterally General nose exam: Normal nasal mucous membranes and turbinates present Eyes Conjunctivae: conjunctivae normal Sclerae: sclerae normal Pupils: Equal, round and reactive pupils present Neck Neck: Yes no lymphadenopathy and Yes no JVD Thyroid: Thyroid normal Carotids: no bruits Resp Effort & Inspection: normal respiratory effort and not tachypneic Auscultation: no crackles, no rales, no rhonchi and no wheezes Cardio Rate: regular rate Rhythm: regular rhythm Heart sounds: no murmurs and normal S1 and S2 GI Palpation (GI): Soft to palpation, nontender, no hepatomegaly and no splenomegaly Auscultation: normal bowel sounds Skin General skin exam: no rashes or lesions noted and dry skin Neuro General: oriented to person, oriented to place and oriented to time Cranial nerves: Yes Equal, round and reactive pupils present Speech: No Abnormal speech present Gait exam (Neuro): Normal gait present Motor exam (neuro): no tremor noted Extrem Right upper extremity: full ROM Left upper extremity: full ROM Right lower extremity: full ROM; no edema Left lower extremity: full ROM; no edema Psych Mental Status: mental status grossly normal Speech and movement: Normal speech and movement present Affect: normal affect Attitude: cooperative Thought process: Normal thought process present Coding Level of Care Code New Pt Level 3 (07691) Diagnoses Encounter to establish care with new provider Z76.89 S/P inguinal hernia repair Z98.890; Z87.19 Mixed hyperlipidemia E78.2 Vitamin D deficiency E55.9 Additional Codes PHQ-9 - 02738 - PHQ-9 Billing: Yes ([id number]) MARIA-7 Assessment Billing - MARIA-7 Assessment Tool: MARIA-7 Assessment 96141 ([id number]) Time Spent (min) 34 Assessment & Plan Assessment & Plan (1) Encounter to establish care with new provider: Code(s): Z76.89 - Persons encountering health services in other specified circumstances Category: Medical Plan: Patient is a 75-year-old male establishing care. Reports recent physical in February. The patient is in overall good health and has no concerns today. He had recent labs at previous primary care that were within normal limits, except slight elevation in cholesterol. (2) S/P inguinal hernia repair: Comment: Right Code(s): Z98.890 - Other specified postprocedural states; Z87.19 - Personal history of other diseases of the digestive system Category: Surgical Plan: Status post right inguinal hernia repair with mesh on 05/10/2025. The patient had some residual of scrotal swollen that had resolved. (3) Mixed hyperlipidemia: Code(s): E78.2 - Mixed hyperlipidemia Category: Medical Plan: Discussed lifestyle modifications including dietary changes and physical activity (4) Vitamin D deficiency: Code(s): E55.9 - Vitamin D deficiency, unspecified Category: Medical Plan: Continue cholecalciferol 25 mcg daily Orders: Orders Lipid Panel 1 Year Z00.00 - Encounter for general adult medical examination without abnormal findings Complete Blood Count Auto Diff 1 Year Z00.00 - Encounter for general adult medical examination without abnormal findings Comprehensive [place]. Panel Fast 1 Year Z00.00 - Encounter for general adult medical examination without abnormal findings UA CC w/rflx Micro + Cult 1 Year Z00.00 - Encounter for general adult medical examination without abnormal findings TSH reflex Free T4 1 Year Z00.00 - Encounter for general adult medical examination without abnormal findings Vitamin D 25-OH Total 1 Year Z00.00 - Encounter for general adult medical examination without abnormal findings PSA,Total (Free>4and<10) 1 Year Z00.00 - Encounter for general adult medical examination without abnormal findings
--- OUTSIDE RECORDS SUMMARY | 2025-07-13 18:14 | XMS_ITS | Clinical Summary ---
Author Organization [facility] Address [address] [address] Phone Care Team Providers Care Microcomputer Technician Name Role Phone Tacho Knox MD Primary Care Provider [phone] Allergies No known active allergies Medications No [...] Pass [facility] Endoscopy Admitting Dept Virtual Department [address] [place] [phone] 07/21/2025 9:00 AM EDT Hospital Encounter [facility] Admitting Dept Virtual Department [address] [place] [phone] Pedrito Mo MD [address] [address] 07/21/2025 9:00 AM EDT - 07/21/2025 9:30 AM EDT Surgery [facility] Endoscopy Admitting Dept Virtual Department [address] [place] [address] Pedrito Mo MD [address] [address] COLONOSCOPY Scheduled Procedures Name Priority Associated Diagnoses [...] 70 Admit Type: Outpatient Gender: Male Room: [facility] Referring MD: TACHO KNOX MD Exam Type: [...] monitored continuously. The Olympus adult variable colonoscope [id number] #2was introduced through the anus and advanced [...] 8:05 AM Procedure Code(s): --- Professional --- 64963, Colonoscopy, flexible; with removal of tumor(s), polyp(s), or other lesion(s) by snare technique --- Technical --- 27738, Colonoscopy, flexible; with removal of tumor(s), polyp(s), [...] or abscess without bleeding CPT copyright 2018 [employer]. All rights reserved. The codes documented in this report are preliminary and upon crane operator cab reviewmay be revised to meet current compliance requirements. Procedure Date: 06/30/2020 8:05:06 AM [address] [place] [address] Tacho Knox MD GI PROCEDURE ORDERABLES Final Re sult from Last 3 Months or Most Recently Relevant to Health Maintenance Insurance MEDICARE PART A & B [facility] MEDICARE SUPPLEMENT MEDICARE PART A & B [facility] MEDICARE SUPPLEMENT MEDICARE PART A & B [facility] MEDICARE SUPPLEMENT MEDICARE PART A & B [employer]ARE SUPPLEMENT MEDICARE PART A & B [employer] MEDICARE SUPPLEMENT MEDICARE PART A & B [employer] MEDICARE SUPPLEMENT MEDICARE PART A & B [employer] MEDICARE SUPPLEMENT MEDICARE PART A & B [employer] MEDICARE SUPPLEMENT MEDICARE PART A & B [employer]ICARE SUPPLEMENT Care Teams Microcomputer Technician Relationship Specialty Start Date End Date Tacho Knox MD PCP - General Family Medicine 06/21/20 Additional Source Comments The information contained in this document represents components of the legal health record. It is not the complete legal health record.[facility]
--- OUTSIDE RECORDS SUMMARY | 2025-07-13 18:14 | XMS_ITS | Encounter Summary ---
Author Organization [facility] Address [address] [place], [place] [id number] Phone Care Team Providers Care Senior Loan Officer Name Role Phone Tacho Knox MD Primary Care Provider [phone] Encounter Details Date Type Department Care Team (Late st Contact Info) Description 06/30/2020 Procedure Pass [facility] Endoscopy Admitting Dept Virtual Department [address] [place] [phone] Social History Tobacco Use Types Packs/Day Years [...] Pass [facility] Endoscopy Admitting Dept Virtual Department [address] [place] [phone] 07/21/2025 9:00 AM EDT Hospital Encounter [facility] Endoscopy Admitting Dept Virtual Department [address] [place] [address] Pedrito Montero MD [address] [place] [address] 07/21/2025 9:00 AM EDT - 07/21/2025 9:30 AM EDT Surgery [facility] Endoscopy Admitting Dept Virtual Department [address] [place] [address] Pedrito Montero MD [address] [place] [phone] [email or web address] COLONOSCOPY Scheduled Procedures Name Priority Associated Diagnoses Date/Ti me COLONOSCOPY Personal history of colon polyps, unspecified 07/21/2025 9:00 AM EDT documented as of this encounter Visit Diagnoses Not on filedocumented in this encounter Care Teams Senior Loan Officer Relationship Specialty Start Date End Date Tacho Knox MD [email or web address] PCP - General Family Medicine 06/21/20 documented as of this encounter Additional Source Comments The information contained in this document represents components of the legal health record. It is not the complete legal health record.[facility]
== END 2025-07-13 15:28 | disposition home or self-care (01) ==
LOC: HO.HMCH 14:31
DX: Z76.89 Persons encountering health services in other specified circumstances (principal); Z98.890 Other specified postprocedural states; Z87.19 Personal history of other diseases of the digestive system; E78.2 Mixed hyperlipidemia; E55.9 Vitamin D deficiency, unspecified

== ENCOUNTER → 2025-07-13 14:29 | Outpatient (BNVA) | payer MEDICARE, OTHER, SELFPAY | DX: E78.2 Mixed hyperlipidemia (principal); E55.9 Vitamin D deficiency, unspecified; Z87.19 Personal history of other diseases of the digestive system; Z76.89 Persons encountering health services in other specified circumstances; Z98.890 Other specified postprocedural states | CPT/HCPCS: 96127; 99202 ==

== ENCOUNTER → 2025-10-06 15:17 | Outpatient (BNV) | payer MEDICARE, OTHER, SELFPAY | PROVIDERS: Referring Provider Specialist; Visit Provider Internal Medicine | DX: C18.6 Malignant neoplasm of descending colon (principal); D72.820 Lymphocytosis (symptomatic) | CPT/HCPCS: 99204; G2211 ==